=== PATIENT | male | born 1990 | race Caucasian/White ===

== ENCOUNTER 2024-04-16 10:38 | Inpatient (IN) | payer MEDICAID, OTHER ==
[~2024-04-16] VITALS: Ht 182.9 cm; Wt 52.4 kg
[2024-04-16] VITALS (44 sets, daily range): BP systolic 31–106; BP diastolic 15–62; TEMP 97–100.2; O2SAT 79–100
[2024-04-16] MEDS: IV NORMAL SALINE 1000 ML BAG IV ONE (11:00)
[2024-04-16] MEDS: ALBUTEROL SULFATE 2.5 MG/3 ML NEBU NEB ONE (11:00)
[2024-04-16] MEDS ORDERED: VANCOMYCIN IV 1,000 MG in IV DEXTROSE 5% 250 ML IV ONE (11:00)
[2024-04-16] MEDS ORDERED: NOREPINEPHRINE 8MG/NS 250ML 250 ML IV ONE (11:14)
[2024-04-16] MEDS: NOREPINEPHRINE 8MG/NS 250ML 250 ML IV PRN (11:14)
[2024-04-16] MEDS: ETOMIDATE 20 MG/10 ML VIAL IV ONE (11:20)
[2024-04-16] MEDS ORDERED: PROPOFOL 100 ML ONE (11:34)
[2024-04-16 11:52] LABS: ETHANOL 273 MG/DL (0-10)
[2024-04-16 11:52] LABS: ABG HCO3 3.4 mmol/L (21.0-28.0); ABG PCO2 20.6 mmHg (35.0-48.0); ABG PH 6.833 (7.350-7.450); ABG PO2 > 500.9 mmHg (83.0-108.0); ABG SITE LEFT FEMORAL; ABG TOTAL HEMOGLOBIN 15.4 G/dL (13.5-17.5); AaDO2 99.8 mmHg; COHb 0.3 % (0.5-1.5); MetHb 0.7 % (0.0-1.5); O2Hb 98.7 % (94.0-98.0); VT, ABG 500 mL
[2024-04-16 11:57] LABS: ALANINE AMINOTRANSFERASE 463 U/L (16-63); ALBUMIN 3.5 g/dL (3.4-5.0); ALKALINE PHOSPHATASE 169 U/L (50-136); ASPARTATE AMINOTRANSFERASE 423 U/L (15-37); BILIRUBIN,DIRECT 2.8 mg/dL (0.0-0.2); BILIRUBIN,TOTAL 3.3 mg/dL (0.2-1.0); CALCIUM 8.2 mg/dL (8.5-10.1); CHLORIDE 80 mmol/L (98-107); CREATININE 2.9 mg/dL (0.6-1.3); GLUCOSE 91 mg/dL (74-106); POTASSIUM 3.8 mmol/L (3.5-5.1); SODIUM SERUM 132 mmol/L (136-145); TOTAL PROTEIN, SERUM 5.8 g/dL (6.4-8.2); UREA NITROGEN, BLOOD 32 mg/dL (7-18)
[2024-04-16 11:59] LABS: BASOPHILS # (AUTO) 0.1 K/UL (0.0-0.2); BASOPHILS % (AUTO) 0.4 % (0.0-2.0); DIFFERENTIAL COMMENT 1; EOSINOPHILS % (AUTO) 0.2 % (0.0-7.0); HEMATOCRIT 47.1 % (36.7-47.1); HEMOGLOBIN 14.8 g/dL (12.5-16.3); LYMPHOCYTES # (AUTO) 4.1 K/uL (0.8-4.8); LYMPHOCYTES % (AUTO) 13.9 % (20.5-51.5); MEAN CORPUSCULAR HEMOGLOBIN 31.5 uug (23.8-33.4); MEAN CORPUSCULAR HGB CONC 32 g/dL (32.5-36.3); MEAN CORPUSCULAR VOLUME 99.9 fL (73.0-96.2); MONOCYTES # (AUTO) 4.2 K/uL (0.1-1.30); MONOCYTES % (AUTO) 14.2 % (0.0-11.0); NEUTROPHILS # (AUTO) 21.1 K/uL (1.8-8.9); NEUTROPHILS % (AUTO) 71.3 % (38.5-71.5); PLATELET COUNT (AUTO) 186 K/uL (152-348); RED BLOOD CELL COUNT(AUTO) 4.71 MIL/uL (4.06-5.63); RED CELL DISTRIBUTION WIDTH 13.7 % (12.1-16.2); WHITE BLOOD COUNT (AUTO) 29.6 K/uL (3.6-10.2)
[2024-04-16 12:00] LABS: NT-PRO BNP 510 pg/mL (0-125)
[2024-04-16 12:02] LABS: THYROID STIMULATING HORMONE 0.902 mIU/mL (0.358-3.740)
[2024-04-16 12:07] LABS: ACETAMINOPHEN < 10.0 ug/mL (10-30)
[2024-04-16 12:12] LABS: AMMONIA 218 umol/L (11-32)
[2024-04-16] MEDS: DEXTROSE 50% 50 ML DISP.SYRIN IV ONE (12:15)
[2024-04-16] MEDS: INSULIN REGULAR, HUMAN 1000 UNIT/10 ML VIAL IV ONE (12:15)
[2024-04-16] MEDS: CALCIUM CHLORIDE 1 GM/10 ML DISP.SYRIN IVP ONE (12:15)
[2024-04-16] MEDS: PIPERACILLIN SODIUM/TAZOBACTAM 3.375 G in IV DEXTROSE 5% 50 ML IV ONE (12:15)
[2024-04-16] MEDS: SODIUM BICARBONATE 8.4% 50 MEQ/50 ML DISP.SYRIN IV ONE (12:15)
[2024-04-16] MEDS ORDERED: IV LACTATED RINGERS SOLUTION 1,000 ML IV SCH (12:15)
[2024-04-16 12:17] LABS: LACTIC ACID 31.6 mmol/L (0.4-2.0)
[2024-04-16] MEDS: RIFAXIMIN 550 MG TABLET NG SCH (12:45)
[2024-04-16] MEDS: LACTULOSE 20 G/30 ML LIQUID UDC NG SCH (12:45)
[2024-04-16] MEDS ORDERED: PHENYLEPHRINE IV 100 MG in IV NORMAL SALINE 240 ML IV PRN (13:00)
[2024-04-16] MEDS: PROPOFOL 200 MG/20 ML BOTTLE IV ONE (13:03)
[2024-04-16] MEDS: IV NS 1000 ML 1,000 ML IV PRN (13:04)
[2024-04-16] MEDS: SODIUM BICARBONATE 8.4% 150 MEQ in IV D5W 1000ML 1,000 ML IV SCH ×2 (13:05→13:49)
[2024-04-16] MEDS: PROPOFOL 100 ML IV PRN ×2 (13:24→23:06)
[2024-04-16] MEDS ORDERED: NOREPINEPHRINE BITARTRATE 32 MG in IV NORMAL SALINE 218 ML IV PRN (13:30)
[2024-04-16] MEDS: PHENYLEPHRINE IV 100 MG in IV NORMAL SALINE 240 ML IV PRN (13:46)
[2024-04-16 13:47] LABS: *BILIRUBIN,URIN NEGATIVE (NEGATIVE); *BLOOD, URINE 2+ (NEGATIVE); *CLARITY,URINE CLEAR (CLEAR); *COLOR,URINE YELLOW (YELLOW); *KETONES,URINE 1+ (NEGATIVE); *PROTEIN,URINE 3+ (NEGATIVE); *UROBILINOGEN,URINE 0.2 E.U./dl (NORMAL); LEUKOCYTE ESTERASE ,URINE NEGATIVE (NEGATIVE); NITRITE, URINE NEGATIVE (NEGATIVE); PH,URINE 5.5 (5.0-8.0); UGLUCOSE NEGATIVE (NEGATIVE)
[2024-04-16 13:52] LABS: BACTERIA,URINE FEW /HPF (NONE SEEN); RBC,URINE 20-50 /HPF (0-3); URINE AMORPHOUS URATE FEW /HPF; WBC,URINE 0-3 /HPF (0-3)
[2024-04-16] MEDS: FENTANYL CITRATE/PF 1,000 MCG in IV NORMAL SALINE 80 ML IV PRN (13:55)
[2024-04-16] MEDS: VANCOMYCIN IV 1,000 MG in IV DEXTROSE 5% 250 ML IV ONE (14:01)
[2024-04-16] MEDS: MEROPENEM 1 G in IV NORMAL SALINE 100 ML IV SCH (14:02)
[2024-04-16 14:18] LABS: *AMPHETAMINE, URINE NEGATIVE (NEGATIVE); *BARBITURATE, URINE NEGATIVE (NEGATIVE); *BENZODIAZEPINE, URINE NEGATIVE (NEGATIVE); *CANNABINOID, URINE NEGATIVE (NEGATIVE); *COCCAINE, URINE NEGATIVE (NEGATIVE); *OPIATE, URINE NEGATIVE (NEGATIVE); *PHENCYCLIDINE SCREEN,URINE NEGATIVE (NEGATIVE); FENTANYL, URINE NEGATIVE (NEGATIVE)
[2024-04-16] MEDS: IV LACTATED RINGERS SOLUTION 1,000 ML IV PRN (17:42)
[2024-04-16] MEDS: VASOPRESSIN 40 UNIT in IV NORMAL SALINE 40 ML IV PRN (18:05)
[2024-04-16 18:19] LABS: BASOPHILS # (AUTO) 0.1 K/UL (0.0-0.2); BASOPHILS % (AUTO) 0.6 % (0.0-2.0); EOSINOPHILS % (AUTO) 0.1 % (0.0-7.0); HEMATOCRIT 51.2 % (36.7-47.1); HEMOGLOBIN 17.1 g/dL (12.5-16.3); LYMPHOCYTES # (AUTO) 3.6 K/uL (0.8-4.8); LYMPHOCYTES % (AUTO) 19.9 % (20.5-51.5); MEAN CORPUSCULAR HEMOGLOBIN 32.2 uug (23.8-33.4); MEAN CORPUSCULAR HGB CONC 33 g/dL (32.5-36.3); MEAN CORPUSCULAR VOLUME 96.2 fL (73.0-96.2); MONOCYTES # (AUTO) 0.4 K/uL (0.1-1.30); MONOCYTES % (AUTO) 2.5 % (0.0-11.0); NEUTROPHILS % (AUTO) 76.9 % (38.5-71.5); PLATELET COUNT (AUTO) 121 K/uL (152-348); RED BLOOD CELL COUNT(AUTO) 5.33 MIL/uL (4.06-5.63); RED CELL DISTRIBUTION WIDTH 13.6 % (12.1-16.2); WHITE BLOOD COUNT (AUTO) 18.2 K/uL (3.6-10.2)
[2024-04-16] MEDS: CHARCOAL ACTIVATED (WITHOUT SORBITOL) 50 G/240 ML BOTTLE NG ONE (18:26)
[2024-04-16 18:55] LABS: DIFFERENTIAL COMMENT 1
[2024-04-16 19:06] LABS: ALBUMIN 1.9 g/dL (3.4-5.0); BILIRUBIN,DIRECT 1.8 mg/dL (0.0-0.2); BILIRUBIN,TOTAL 3.4 mg/dL (0.2-1.0); CREATININE 2.7 mg/dL (0.6-1.3); POTASSIUM 4.6 mmol/L (3.5-5.1)
[2024-04-16 19:12] LABS: CALCIUM 5.8 mg/dL (8.5-10.1)
[2024-04-16] MEDS ORDERED: IV LACTATED RINGERS SOLUTION 500 ML IV SCH (20:00)
[2024-04-16] MEDS ORDERED: PROPOFOL 100 ML IV PRN (23:00)
[2024-04-17] VITALS (81 sets, daily range): BP systolic 31–149; BP diastolic 12–97; TEMP 98.3–101; O2SAT 83–100
[2024-04-17] MEDS: NOREPINEPHRINE BITARTRATE 32 MG in IV NORMAL SALINE 218 ML IV PRN (00:09)
[2024-04-17] MEDS: ACETAMINOPHEN 650 MG SUPP.RECT RC PRN (04:19)
[2024-04-17] MEDS ORDERED: LACTULOSE 20 G/30 ML LIQUID UDC ONE (06:09)
[2024-04-17 06:35] LABS: BASOPHILS % (AUTO) 0.5 % (0.0-2.0); DIFFERENTIAL COMMENT 0; EOSINOPHILS % (AUTO) 0.1 % (0.0-7.0); HEMATOCRIT 41.2 % (36.7-47.1); LYMPHOCYTES % (AUTO) 25.9 % (20.5-51.5); MEAN CORPUSCULAR HEMOGLOBIN 33.9 uug (23.8-33.4); MEAN CORPUSCULAR HGB CONC 37 g/dL (32.5-36.3); MEAN CORPUSCULAR VOLUME 92.7 fL (73.0-96.2); MONOCYTES # (AUTO) 0.5 K/uL (0.1-1.30); MONOCYTES % (AUTO) 11.3 % (0.0-11.0); NEUTROPHILS # (AUTO) 2.5 K/uL (1.8-8.9); NEUTROPHILS % (AUTO) 62.2 % (38.5-71.5); PLATELET COUNT (AUTO) 57 K/uL (152-348); RED BLOOD CELL COUNT(AUTO) 4.44 MIL/uL (4.06-5.63); RED CELL DISTRIBUTION WIDTH 13.3 % (12.1-16.2)
[2024-04-17 07:45] LABS: CALCIUM 6.1 mg/dL (8.5-10.1); CREATININE 3.9 mg/dL (0.6-1.3); FIBRINOGEN ACTIVITY 184 mg/dL (210-360); MAGNESIUM 1.8 mg/dL (1.8-2.4); PHOSPHOROUS 1.7 mg/dL (2.5-4.9); POTASSIUM 3.8 mmol/L (3.5-5.1)
[2024-04-17 07:57] LABS: VANCOMYCIN,RANDOM 14.4 ug/mL (20.0-30.0)
[2024-04-17] MEDS: PANTOPRAZOLE SODIUM 40 MG VIAL IV SCH ×2 (08:02→21:04)
[2024-04-17 08:26] LABS: ABG BASE EXCESS -3.2 mmol/L (-2.0-3.0); ABG HCO3 22.4 mmol/L (21.0-28.0); ABG PCO2 42.4 mmHg (35.0-48.0); ABG PH 7.341 (7.350-7.450); ABG PO2 55.5 mmHg (83.0-108.0); ABG SITE LEFT BRACHIAL; ABG TOTAL HEMOGLOBIN 14.1 G/dL (13.5-17.5); AaDO2 87.2 mmHg; COHb 0.3 % (0.5-1.5); MetHb 0.3 % (0.0-1.5); O2Hb 90.1 % (94.0-98.0); VT, ABG 500 mL
[2024-04-17 09:02] LABS: BAND % (MANUAL) 4 % (0-10); LYMPHOCYTES % (MANUAL) 23 % (20-40); MONOCYTES % (MANUAL) 13 % (2-10); NEUTROPHILS % (MANUAL) 57 % (42-75)
[2024-04-17 09:03] LABS: METAMYELOCYTES % 3 % (0-1); PLATELET ESTIMATE DECREASED
[2024-04-17] MEDS: VANCOMYCIN IV 500 MG in IV DEXTROSE 5% 100 ML IV ONE (09:29)
[2024-04-17] MEDS ORDERED: LACTULOSE 20 G/30 ML LIQUID UDC PR SCH (09:45)
[2024-04-17] MEDS: LEVALBUTEROL HCL NEB 0.63 MG/3 ML NEBU NEB SCH (09:53)
[2024-04-17] MEDS: IPRATROPIUM BROMIDE 0.5 MG/2.5 ML NEBU NEB SCH (09:53)
[2024-04-17] MEDS: HYDROCORTISONE SOD SUCCINATE 100 MG/2 ML VIAL IV SCH (10:00)
[2024-04-17] MEDS: SODIUM PHOSPHATE MM 15 MMOL in IV NORMAL SALINE 250 ML IV ONE (10:55)
[2024-04-17] MEDS: IRR STERIL WATER FOR IRR 700 ML, LACTULOSE 200 G PR SCH (11:00)
[2024-04-17 11:23] LABS: ABG BASE EXCESS 0.7 mmol/L (-2.0-3.0); ABG HCO3 24.9 mmol/L (21.0-28.0); ABG PCO2 38.8 mmHg (35.0-48.0); ABG PH 7.426 (7.350-7.450); ABG SITE LEFT BRACHIAL; ABG TOTAL HEMOGLOBIN 14.8 G/dL (13.5-17.5); AaDO2 88.9 mmHg; COHb 0.3 % (0.5-1.5); MetHb 0.2 % (0.0-1.5); O2Hb 90.9 % (94.0-98.0); VT, ABG 450 mL
[2024-04-17] MEDS: FUROSEMIDE 40 MG/4 ML VIAL IV ONE (12:06)
[2024-04-18] VITALS (99 sets, daily range): BP systolic 39–137; BP diastolic 15–89; TEMP 97.8–99.3; O2SAT 81–100
[2024-04-18 06:53] LABS: BASOPHILS % (AUTO) 0.2 % (0.0-2.0); DIFFERENTIAL COMMENT 0; EOSINOPHILS % (AUTO) 0.1 % (0.0-7.0); HEMATOCRIT 25.6 % (36.7-47.1); HEMOGLOBIN 9.4 g/dL (12.5-16.3); LYMPHOCYTES % (AUTO) 7.4 % (20.5-51.5); MEAN CORPUSCULAR HEMOGLOBIN 32.9 uug (23.8-33.4); MEAN CORPUSCULAR HGB CONC 37 g/dL (32.5-36.3); MEAN CORPUSCULAR VOLUME 90.1 fL (73.0-96.2); MONOCYTES # (AUTO) 0.3 K/uL (0.1-1.30); MONOCYTES % (AUTO) 2.7 % (0.0-11.0); NEUTROPHILS # (AUTO) 11.7 K/uL (1.8-8.9); NEUTROPHILS % (AUTO) 89.6 % (38.5-71.5); RED BLOOD CELL COUNT(AUTO) 2.84 MIL/uL (4.06-5.63); RED CELL DISTRIBUTION WIDTH 13.1 % (12.1-16.2); WHITE BLOOD COUNT (AUTO) 13.1 K/uL (3.6-10.2)
[2024-04-18 06:57] LABS: PLATELET COUNT (AUTO) 24 K/uL (152-348)
[2024-04-18 07:48] LABS: ALANINE AMINOTRANSFERASE 490 U/L (16-63); ALBUMIN 1.6 g/dL (3.4-5.0); ALKALINE PHOSPHATASE 91 U/L (50-136); ASPARTATE AMINOTRANSFERASE 1400 U/L (15-37); BILIRUBIN,TOTAL 4.7 mg/dL (0.2-1.0); CARBON DIOXIDE 28 mmol/L (21-32); CHLORIDE 92 mmol/L (98-107); CREATININE 4.6 mg/dL (0.6-1.3); GLUCOSE 279 mg/dL (74-106); SODIUM SERUM 133 mmol/L (136-145); TOTAL PROTEIN, SERUM 3.2 g/dL (6.4-8.2); UREA NITROGEN, BLOOD 33 mg/dL (7-18)
[2024-04-18] MEDS: MIDAZOLAM HCL 50 MG in IV NORMAL SALINE 40 ML IV PRN (07:52)
[2024-04-18 07:59] LABS: CALCIUM 5.3 mg/dL (8.5-10.1); LACTIC ACID 10.5 mmol/L (0.4-2.0); LIPASE > 375 U/L (16-77)
[2024-04-18 08:07] LABS: VANCOMYCIN,RANDOM 13.9 ug/mL (20.0-30.0)
[2024-04-18] MEDS: VANCOMYCIN IV 500 MG in IV DEXTROSE 5% 100 ML IV ONE ×2 (09:00→15:00)
[2024-04-18] MEDS: PHYTONADIONE 10 MG/1 ML AMPUL IM ONE (10:31)
[2024-04-18 11:31] LABS: BASOPHILS % (AUTO) 0.2 % (0.0-2.0); EOSINOPHILS % (AUTO) 0.2 % (0.0-7.0); LYMPHOCYTES # (AUTO) 0.9 K/uL (0.8-4.8); LYMPHOCYTES % (AUTO) 5.9 % (20.5-51.5); MEAN CORPUSCULAR HGB CONC 37 g/dL (32.5-36.3); MEAN CORPUSCULAR VOLUME 89.9 fL (73.0-96.2); MONOCYTES # (AUTO) 0.4 K/uL (0.1-1.30); MONOCYTES % (AUTO) 2.5 % (0.0-11.0); NEUTROPHILS # (AUTO) 13.3 K/uL (1.8-8.9); NEUTROPHILS % (AUTO) 91.2 % (38.5-71.5); RED CELL DISTRIBUTION WIDTH 12.9 % (12.1-16.2); WHITE BLOOD COUNT (AUTO) 14.5 K/uL (3.6-10.2)
[2024-04-18 11:34] LABS: DIFFERENTIAL COMMENT 1; HEMATOCRIT 20.2 % (36.7-47.1); HEMOGLOBIN 7.4 g/dL (12.5-16.3); PLATELET COUNT (AUTO) 29 K/uL (152-348); RED BLOOD CELL COUNT(AUTO) 2.25 MIL/uL (4.06-5.63)
[2024-04-18] MEDS: ALBUMIN HUMAN 25% 100 ML IV PRN (11:48)
[2024-04-18] MEDS ORDERED: PHYTONADIONE 10 MG/1 ML AMPUL IM ONE (15:15)
[2024-04-18] MEDS: ACETAMINOPHEN 325 MG TABLET PO ONE (15:15)
[2024-04-18] MEDS: diphenhydrAMINE 50 MG/1 ML VIAL IV ONE (15:15)
[2024-04-18 16:03] LABS: THYROID STIMULATING HORMONE 0.49 mIU/mL (0.358-3.740)
[2024-04-18 16:10] LABS: *RHEUMATOID FACTOR SCREEN NEGATIVE (NEGATIVE); HIV-1 p24 ANTIGEN NON REACTIVE (NONREACTIVE); HIV-1/2 ANTIBODY NON REACTIVE (NONREACTIVE)
[2024-04-18 17:00] LABS: C-REACTIVE PROTEIN 14.72 mg/dL (0.00-0.30)
[2024-04-18] MEDS ORDERED: ACETAMINOPHEN 325 MG TABLET-SA PATIENTS-PAIN ONLY PO PRN (18:00)
[2024-04-18] MEDS: ACETAMINOPHEN 325 MG TABLET NG PRN (18:09)
[2024-04-18] MEDS ORDERED: ACETAMINOPHEN 325 MG TABLET GT PRN (18:15)
[2024-04-18 18:36] LABS: BAND % (MANUAL) 8 % (0-10); LYMPHOCYTES % (MANUAL) 6 % (20-40); MONOCYTES % (MANUAL) 1 % (2-10); NEUTROPHILS % (MANUAL) 85 % (42-75)
[2024-04-18 18:37] LABS: ANISOCYTOSIS 1+; PLATELET ESTIMATE MARKED DECREASED
[2024-04-18 18:38] LABS: HYPOCHROMASIA 1+; TEAR DROP CELLS OCC
[2024-04-18 20:15] LABS: BASOPHILS % (AUTO) 0.2 % (0.0-2.0); EOSINOPHILS # (AUTO) 0.1 K/uL (0.0-0.7); EOSINOPHILS % (AUTO) 0.6 % (0.0-7.0); HEMATOCRIT 24.2 % (36.7-47.1); HEMOGLOBIN 8.6 g/dL (12.5-16.3); LYMPHOCYTES # (AUTO) 0.6 K/uL (0.8-4.8); MEAN CORPUSCULAR HEMOGLOBIN 31.8 uug (23.8-33.4); MEAN CORPUSCULAR HGB CONC 36 g/dL (32.5-36.3); MEAN CORPUSCULAR VOLUME 89.2 fL (73.0-96.2); MONOCYTES # (AUTO) 0.5 K/uL (0.1-1.30); MONOCYTES % (AUTO) 3.4 % (0.0-11.0); NEUTROPHILS # (AUTO) 14.3 K/uL (1.8-8.9); NEUTROPHILS % (AUTO) 91.8 % (38.5-71.5); PLATELET COUNT (AUTO) 60 K/uL (152-348); RED BLOOD CELL COUNT(AUTO) 2.71 MIL/uL (4.06-5.63); RED CELL DISTRIBUTION WIDTH 13.8 % (12.1-16.2); WHITE BLOOD COUNT (AUTO) 15.6 K/uL (3.6-10.2)
[2024-04-19] VITALS (96 sets, daily range): BP systolic 90–151; BP diastolic 53–82; TEMP 97.8–99.6; O2SAT 89–100
[2024-04-19 01:03] LABS: ABG BASE EXCESS 5.4 mmol/L (-2.0-3.0); ABG HCO3 28.2 mmol/L (21.0-28.0); ABG PCO2 33.9 mmHg (35.0-48.0); ABG PH 7.538 (7.350-7.450); ABG PO2 114.7 mmHg (83.0-108.0); ABG SITE ALINE; ABG TOTAL HEMOGLOBIN 8.4 G/dL (13.5-17.5); AaDO2 98.6 mmHg; COHb 0.3 % (0.5-1.5); MetHb 0.4 % (0.0-1.5); O2Hb 97.5 % (94.0-98.0); VT, ABG 450 mL
[2024-04-19 01:03] LABS: ABG BASE EXCESS 2.4 mmol/L (-2.0-3.0); ABG HCO3 26.2 mmol/L (21.0-28.0); ABG PCO2 37.3 mmHg (35.0-48.0); ABG PH 7.464 (7.350-7.450); ABG PO2 68.5 mmHg (83.0-108.0); ABG SITE LEFT RADIAL; ABG TOTAL HEMOGLOBIN 9.8 G/dL (13.5-17.5); AaDO2 94.7 mmHg; COHb 0.3 % (0.5-1.5); MetHb 0.5 % (0.0-1.5); O2Hb 93.2 % (94.0-98.0); VT, ABG 450 mL
[2024-04-19 05:57] LABS: EOSINOPHILS % (AUTO) 0.3 % (0.0-7.0); HEMATOCRIT 22.6 % (36.7-47.1); HEMOGLOBIN 7.9 g/dL (12.5-16.3); LYMPHOCYTES # (AUTO) 0.4 K/uL (0.8-4.8); LYMPHOCYTES % (AUTO) 2.9 % (20.5-51.5); MEAN CORPUSCULAR HEMOGLOBIN 31.2 uug (23.8-33.4); MEAN CORPUSCULAR HGB CONC 35 g/dL (32.5-36.3); MEAN CORPUSCULAR VOLUME 88.9 fL (73.0-96.2); MONOCYTES # (AUTO) 0.8 K/uL (0.1-1.30); MONOCYTES % (AUTO) 5.8 % (0.0-11.0); RED BLOOD CELL COUNT(AUTO) 2.54 MIL/uL (4.06-5.63); RED CELL DISTRIBUTION WIDTH 13.9 % (12.1-16.2); WHITE BLOOD COUNT (AUTO) 13.2 K/uL (3.6-10.2)
[2024-04-19 05:59] LABS: ABG BASE EXCESS 5.2 mmol/L (-2.0-3.0); ABG HCO3 29.8 mmol/L (21.0-28.0); ABG PCO2 44.2 mmHg (35.0-48.0); ABG PH 7.446 (7.350-7.450); ABG PO2 91.4 mmHg (83.0-108.0); ABG SITE LEFT RADIAL; ABG TOTAL HEMOGLOBIN 8.5 G/dL (13.5-17.5); AaDO2 97.2 mmHg; COHb 0.3 % (0.5-1.5); MetHb 0.6 % (0.0-1.5); VT, ABG 450 mL
[2024-04-19 06:05] LABS: DIFFERENTIAL COMMENT 1; PLATELET COUNT (AUTO) 48 K/uL (152-348)
[2024-04-19 06:44] LABS: BILIRUBIN,TOTAL 4.3 mg/dL (0.2-1.0); CREATININE 4.6 mg/dL (0.6-1.3); MAGNESIUM 1.5 mg/dL (1.8-2.4); PHOSPHOROUS 4.2 mg/dL (2.5-4.9); POTASSIUM 4.2 mmol/L (3.5-5.1); TOTAL PROTEIN, SERUM 3.9 g/dL (6.4-8.2)
[2024-04-19 06:49] LABS: CALCIUM 5.6 mg/dL (8.5-10.1)
[2024-04-19 09:22] LABS: BAND % (MANUAL) 20 % (0-10); LYMPHOCYTES % (MANUAL) 4 % (20-40); NEUTROPHILS % (MANUAL) 66 % (42-75)
[2024-04-19 09:23] LABS: ANISOCYTOSIS 1+; METAMYELOCYTES % 3 % (0-1); MONOCYTES % (MANUAL) 7 % (2-10); PLATELET ESTIMATE MARKED DECREASED
[2024-04-19] MEDS: MAGNESIUM SULFATE/D5W 100 ML IV SCH (09:55)
[2024-04-19] MEDS: MEROPENEM 1 G in IV NORMAL SALINE 100 ML IV SCH (14:44)
[2024-04-19] MEDS ORDERED: ALBUMIN HUMAN 25% 100 ML IV PRN (20:00)
[2024-04-19] MEDS: VANCOMYCIN IV 500 MG in IV DEXTROSE 5% 100 ML IV ONE (23:15)
[2024-04-20] VITALS (63 sets, daily range): BP systolic 95–158; BP diastolic 58–85; TEMP 97.7–98.6; O2SAT 85–98
[2024-04-20 05:08] LABS: BASOPHILS % (AUTO) 0.1 % (0.0-2.0); DIFFERENTIAL COMMENT 0; EOSINOPHILS % (AUTO) 0.1 % (0.0-7.0); LYMPHOCYTES # (AUTO) 0.3 K/uL (0.8-4.8); LYMPHOCYTES % (AUTO) 2.2 % (20.5-51.5); MEAN CORPUSCULAR HEMOGLOBIN 31.2 uug (23.8-33.4); MEAN CORPUSCULAR HGB CONC 35 g/dL (32.5-36.3); MEAN CORPUSCULAR VOLUME 89.1 fL (73.0-96.2); MONOCYTES # (AUTO) 1.1 K/uL (0.1-1.30); MONOCYTES % (AUTO) 8.3 % (0.0-11.0); NEUTROPHILS # (AUTO) 11.6 K/uL (1.8-8.9); NEUTROPHILS % (AUTO) 89.3 % (38.5-71.5); RED CELL DISTRIBUTION WIDTH 14.2 % (12.1-16.2)
[2024-04-20 05:12] LABS: CALCIUM 6.6 mg/dL (8.5-10.1); CREATININE 4.1 mg/dL (0.6-1.3); PHOSPHOROUS 4.1 mg/dL (2.5-4.9); POTASSIUM 3.8 mmol/L (3.5-5.1)
[2024-04-20 05:18] LABS: RED BLOOD CELL COUNT(AUTO) 2.23 MIL/uL (4.06-5.63)
[2024-04-20 05:19] LABS: HEMATOCRIT 19.9 % (36.7-47.1)
[2024-04-20 05:20] LABS: PLATELET COUNT (AUTO) 35 K/uL (152-348)
[2024-04-20 06:20] LABS: ANISOCYTOSIS 1+; BAND % (MANUAL) 4 % (0-10); LYMPHOCYTES % (MANUAL) 2 % (20-40); MONOCYTES % (MANUAL) 9 % (2-10); NEUTROPHILS % (MANUAL) 85 % (42-75); PLATELET ESTIMATE DECREASED
[2024-04-20 06:23] LABS: ABG BASE EXCESS 1.1 mmol/L (-2.0-3.0); ABG HCO3 25.5 mmol/L (21.0-28.0); ABG PCO2 39.1 mmHg (35.0-48.0); ABG PH 7.432 (7.350-7.450); ABG PO2 62.3 mmHg (83.0-108.0); ABG SITE ALINE; ABG TOTAL HEMOGLOBIN 7.5 G/dL (13.5-17.5); AaDO2 92.6 mmHg; COHb 0.6 % (0.5-1.5); MetHb 0.9 % (0.0-1.5); O2Hb 90.1 % (94.0-98.0); VT, ABG 450 mL
[2024-04-20] MEDS ORDERED: VANCOMYCIN IV 500 MG in IV DEXTROSE 5% 100 ML IV PRN (10:00)
[2024-04-20] MEDS: MEROPENEM 500 MG in IV NORMAL SALINE 50 ML IV SCH (13:35)
[2024-04-20] MEDS ORDERED: NEPRO 1000 ML GT PRN (18:15)
[2024-04-20] MEDS: NEPRO 1000 ML GT PRN (18:55)
[2024-04-21] VITALS (70 sets, daily range): BP systolic 95–155; BP diastolic 56–81; TEMP 97.7–99.6; O2SAT 93–98
[2024-04-21 01:08] LABS: HEPATITIS B SURFACE AG Negative (Negative)
[2024-04-21 01:08] LABS: FOLATE (FOLIC ACID), SERUM 3.5 ng/mL (>3.0); HEPATITIS B CORE AB, IgM Negative (Negative); HEPATITIS B CORE AB, TOTAL Negative (Negative); HEPATITIS B SURFACE AB, QUAL Reactive (.); HEPATITIS C VIRUS ANTIBODY Non Reactive (Non Reactive)
[2024-04-21 03:12] LABS: *IMMUNOGLOBULIN G, SERUM 270 mg/dL (603-1613); IMMUNOGLOBULIN A, SERUM 70 mg/dL (90-386); IMMUNOGLOBULIN M, SERUM 37 mg/dL (20-172)
[2024-04-21 03:12] LABS: FREE KAPPA LT CHAINS SERUM 26.1 mg/L (3.3-19.4); FREE LAMBDA LT CHAIN SERUM 25.8 mg/L (5.7-26.3); KAPPA/LAMBDA RATIO SERUM 1.01 (0.26-1.65)
[2024-04-21 05:03] LABS: BASOPHILS % (AUTO) 0.1 % (0.0-2.0); DIFFERENTIAL COMMENT 0; EOSINOPHILS % (AUTO) 0.1 % (0.0-7.0); LYMPHOCYTES # (AUTO) 0.2 K/uL (0.8-4.8); LYMPHOCYTES % (AUTO) 0.8 % (20.5-51.5); MEAN CORPUSCULAR HEMOGLOBIN 31.1 uug (23.8-33.4); MEAN CORPUSCULAR HGB CONC 35 g/dL (32.5-36.3); MEAN CORPUSCULAR VOLUME 89.8 fL (73.0-96.2); MONOCYTES # (AUTO) 1.9 K/uL (0.1-1.30); MONOCYTES % (AUTO) 9.8 % (0.0-11.0); NEUTROPHILS % (AUTO) 89.2 % (38.5-71.5); PLATELET COUNT (AUTO) 51 K/uL (152-348); RED CELL DISTRIBUTION WIDTH 14.3 % (12.1-16.2)
[2024-04-21 05:07] LABS: RED BLOOD CELL COUNT(AUTO) 2.03 MIL/uL (4.06-5.63)
[2024-04-21 05:08] LABS: HEMOGLOBIN 6.3 g/dL (12.5-16.3)
[2024-04-21 05:09] LABS: HEMATOCRIT 18.2 % (36.7-47.1)
[2024-04-21 05:14] LABS: CALCIUM 7.5 mg/dL (8.5-10.1); CREATININE 3.8 mg/dL (0.6-1.3); MAGNESIUM 2.3 mg/dL (1.8-2.4); PHOSPHOROUS 3.9 mg/dL (2.5-4.9)
[2024-04-21 05:34] LABS: FIBRINOGEN ACTIVITY 450 mg/dL (210-360)
[2024-04-21 05:41] LABS: BAND % (MANUAL) 8 % (0-10); LYMPHOCYTES % (MANUAL) 2 % (20-40); MONOCYTES % (MANUAL) 11 % (2-10); NEUTROPHILS % (MANUAL) 76 % (42-75); PLATELET ESTIMATE DECREASED
[2024-04-21 05:42] LABS: ANISOCYTOSIS 1+
[2024-04-21 06:08] LABS: ABG BASE EXCESS 0.3 mmol/L (-2.0-3.0); ABG HCO3 24.3 mmol/L (21.0-28.0); ABG PCO2 36.3 mmHg (35.0-48.0); ABG PH 7.444 (7.350-7.450); ABG PO2 78.1 mmHg (83.0-108.0); ABG SITE ALINE; ABG TOTAL HEMOGLOBIN 7.3 G/dL (13.5-17.5); AaDO2 96.1 mmHg; COHb 0.6 % (0.5-1.5); MetHb 0.9 % (0.0-1.5); O2Hb 93.8 % (94.0-98.0); VT, ABG 450 mL
[2024-04-21] MEDS ORDERED: diphenhydrAMINE 25 MG CAP PO ONE (09:00)
[2024-04-21] MEDS: diphenhydrAMINE 50 MG/1 ML VIAL IV ONE ×2 (09:03→18:40)
[2024-04-21] MEDS: NEOMY/BACITRAC/POLYMI OINT 28.35 GM TUBE TOP SCH (12:55)
[2024-04-21 14:11] LABS: A/G RATIO 1.4 (0.7-1.7); ALBUMIN 2.1 g/dL (2.9-4.4); ALPHA-1-GLOBULIN 0.3 g/dL (0.0-0.4); ALPHA-2-GLOBULIN 0.5 g/dL (0.4-1.0); BETA GLOBULIN 0.4 g/dL (0.7-1.3); GAMMA GLOBULIN 0.3 g/dL (0.4-1.8); GLOBULIN, TOTAL 1.5 g/dL (2.2-3.9); M-SPIKE 0.1 g/dL (Not Observed); PROTEIN, TOTAL 3.6 g/dL (6.0-8.5)
[2024-04-21] MEDS: PRECEDEX 400 MCG/100 ML BOTTLE 100 ML IV PRN (15:54)
[2024-04-21 16:29] LABS: BASOPHILS % (AUTO) 0.2 % (0.0-2.0); EOSINOPHILS % (AUTO) 0.1 % (0.0-7.0); LYMPHOCYTES # (AUTO) 0.3 K/uL (0.8-4.8); LYMPHOCYTES % (AUTO) 1.5 % (20.5-51.5); MEAN CORPUSCULAR HEMOGLOBIN 30.9 uug (23.8-33.4); MEAN CORPUSCULAR HGB CONC 35 g/dL (32.5-36.3); MEAN CORPUSCULAR VOLUME 89.3 fL (73.0-96.2); MONOCYTES # (AUTO) 1.5 K/uL (0.1-1.30); MONOCYTES % (AUTO) 8.5 % (0.0-11.0); NEUTROPHILS % (AUTO) 89.7 % (38.5-71.5); PLATELET COUNT (AUTO) 74 K/uL (152-348); RED CELL DISTRIBUTION WIDTH 14.2 % (12.1-16.2); WHITE BLOOD COUNT (AUTO) 17.8 K/uL (3.6-10.2)
[2024-04-21 16:31] LABS: DIFFERENTIAL COMMENT 1; HEMATOCRIT 20.3 % (36.7-47.1); RED BLOOD CELL COUNT(AUTO) 2.27 MIL/uL (4.06-5.63)
[2024-04-21] MEDS: HYDROCORTISONE SOD SUCCINATE 100 MG/2 ML VIAL IV SCH (17:41)
[2024-04-21] MEDS: ACETAMINOPHEN 325 MG TABLET PO ONE (18:39)
[2024-04-21 20:07] LABS: *ANTI-SCLERODERMA-70 AB <0.2 AI (0.0-0.9); *RNP ANTIBODIES <0.2 AI (0.0-0.9); *SJOGREN'S ANTI-SS-A 0.4 AI (0.0-0.9); *SJOGREN'S ANTI-SS-B <0.2 AI (0.0-0.9); *SMITH ANTIBODIES <0.2 AI (0.0-0.9); ANTI-DNA(DS) AB, QN <1 IU/mL (0-9); ANTI-NUCLEAR AB DIRECT Negative (Negative)
[2024-04-22] VITALS (34 sets, daily range): BP systolic 113–155; BP diastolic 63–88; TEMP 97.6–98.2; O2SAT 86–99
[2024-04-22 05:20] LABS: HEMATOCRIT 24.8 % (36.7-47.1); HEMOGLOBIN 8.7 g/dL (12.5-16.3); LYMPHOCYTES # (AUTO) 0.4 K/uL (0.8-4.8); LYMPHOCYTES % (AUTO) 2.2 % (20.5-51.5); MEAN CORPUSCULAR HEMOGLOBIN 31.3 uug (23.8-33.4); MEAN CORPUSCULAR HGB CONC 35 g/dL (32.5-36.3); MEAN CORPUSCULAR VOLUME 89.2 fL (73.0-96.2); MONOCYTES % (AUTO) 5.8 % (0.0-11.0); NEUTROPHILS # (AUTO) 16.3 K/uL (1.8-8.9); PLATELET COUNT (AUTO) 94 K/uL (152-348); RED BLOOD CELL COUNT(AUTO) 2.78 MIL/uL (4.06-5.63); RED CELL DISTRIBUTION WIDTH 14.4 % (12.1-16.2); WHITE BLOOD COUNT (AUTO) 17.7 K/uL (3.6-10.2)
[2024-04-22 05:25] LABS: DIFFERENTIAL COMMENT 1
[2024-04-22 05:35] LABS: ALBUMIN 1.9 g/dL (3.4-5.0); BILIRUBIN,TOTAL 3.2 mg/dL (0.2-1.0); CALCIUM 7.8 mg/dL (8.5-10.1); CREATININE 5.5 mg/dL (0.6-1.3); MAGNESIUM 2.6 mg/dL (1.8-2.4); PHOSPHOROUS 4.3 mg/dL (2.5-4.9); POTASSIUM 4.2 mmol/L (3.5-5.1); TOTAL PROTEIN, SERUM 4.8 g/dL (6.4-8.2)
[2024-04-22 05:39] LABS: FIBRINOGEN ACTIVITY 450 mg/dL (210-360)
[2024-04-22] MEDS: ALBUTEROL SULFATE 1.25 MG/3 ML NEBU NEB SCH (07:06)
[2024-04-22 07:31] LABS: BAND % (MANUAL) 5 % (0-10); LYMPHOCYTES % (MANUAL) 3 % (20-40); MONOCYTES % (MANUAL) 6 % (2-10); NEUTROPHILS % (MANUAL) 81 % (42-75); PLATELET ESTIMATE DECREASED
[2024-04-22] MEDS: MORPHINE SULFATE 2 MG/1 ML DISP.SYRIN IV PRN (12:46)
[2024-04-22] MEDS ORDERED: NOREPINEPHRINE 8MG/NS 250ML 250 ML IV PRN (14:15)
[2024-04-22] MEDS: REMEDY ESSENTIAL ZINC PASTE 113 GM TOP PRN (18:21)
[2024-04-23] VITALS (38 sets, daily range): BP systolic 113–176; BP diastolic 69–89; TEMP 97.8–98.3; O2SAT 94–99
[2024-04-23] MEDS: VANCOMYCIN IV 1,000 MG in IV DEXTROSE 5% 250 ML IV ONE (00:48)
[2024-04-23 03:01] LABS: BASOPHILS # (AUTO) 0.1 K/UL (0.0-0.2); BASOPHILS % (AUTO) 0.5 % (0.0-2.0); HEMOGLOBIN 9.6 g/dL (12.5-16.3); LYMPHOCYTES # (AUTO) 0.6 K/uL (0.8-4.8); LYMPHOCYTES % (AUTO) 2.4 % (20.5-51.5); MEAN CORPUSCULAR HEMOGLOBIN 30.5 uug (23.8-33.4); MEAN CORPUSCULAR HGB CONC 34 g/dL (32.5-36.3); MEAN CORPUSCULAR VOLUME 88.8 fL (73.0-96.2); MONOCYTES # (AUTO) 0.8 K/uL (0.1-1.30); MONOCYTES % (AUTO) 3.3 % (0.0-11.0); NEUTROPHILS # (AUTO) 22.6 K/uL (1.8-8.9); NEUTROPHILS % (AUTO) 93.8 % (38.5-71.5); PLATELET COUNT (AUTO) 161 K/uL (152-348); RED BLOOD CELL COUNT(AUTO) 3.15 MIL/uL (4.06-5.63); RED CELL DISTRIBUTION WIDTH 14.6 % (12.1-16.2); WHITE BLOOD COUNT (AUTO) 24.1 K/uL (3.6-10.2)
[2024-04-23 03:03] LABS: DIFFERENTIAL COMMENT 1
[2024-04-23 03:13] LABS: ALBUMIN 1.8 g/dL (3.4-5.0); BILIRUBIN,TOTAL 2.3 mg/dL (0.2-1.0); CALCIUM 7.7 mg/dL (8.5-10.1); CREATININE 4.6 mg/dL (0.6-1.3); POTASSIUM 4.3 mmol/L (3.5-5.1); TOTAL PROTEIN, SERUM 4.9 g/dL (6.4-8.2)
[2024-04-23 03:27] LABS: FIBRINOGEN ACTIVITY 413 mg/dL (210-360)
[2024-04-23 07:28] LABS: ABG BASE EXCESS 2.3 mmol/L (-2.0-3.0); ABG HCO3 24.4 mmol/L (21.0-28.0); ABG PCO2 29.2 mmHg (35.0-48.0); ABG PO2 111.4 mmHg (83.0-108.0); ABG SITE ALINE; ABG TOTAL HEMOGLOBIN 10.1 G/dL (13.5-17.5); AaDO2 98.6 mmHg; COHb 0.3 % (0.5-1.5); MetHb 0.4 % (0.0-1.5); O2Hb 97.6 % (94.0-98.0)
[2024-04-23 07:28] LABS: ABG BASE EXCESS 0.3 mmol/L (-2.0-3.0); ABG HCO3 22.8 mmol/L (21.0-28.0); ABG PCO2 29.3 mmHg (35.0-48.0); ABG PH 7.508 (7.350-7.450); ABG PO2 105.7 mmHg (83.0-108.0); ABG SITE ALINE; ABG TOTAL HEMOGLOBIN 10.4 G/dL (13.5-17.5); AaDO2 98.3 mmHg; COHb 0.3 % (0.5-1.5); MetHb 0.6 % (0.0-1.5)
[2024-04-23] MEDS: ONDANSETRON 4 MG/2 ML VIAL IV PRN (09:29)
[2024-04-24] VITALS (33 sets, daily range): BP systolic 131–164; BP diastolic 64–91; TEMP 98.3–99.5; O2SAT 92–98
[2024-04-24 05:09] LABS: BASOPHILS % (AUTO) 0.2 % (0.0-2.0); DIFFERENTIAL COMMENT 1; EOSINOPHILS % (AUTO) 0.1 % (0.0-7.0); HEMATOCRIT 26.9 % (36.7-47.1); HEMOGLOBIN 9.2 g/dL (12.5-16.3); LYMPHOCYTES # (AUTO) 0.6 K/uL (0.8-4.8); LYMPHOCYTES % (AUTO) 2.8 % (20.5-51.5); MEAN CORPUSCULAR HEMOGLOBIN 30.9 uug (23.8-33.4); MEAN CORPUSCULAR HGB CONC 34 g/dL (32.5-36.3); MEAN CORPUSCULAR VOLUME 89.8 fL (73.0-96.2); MONOCYTES # (AUTO) 1.4 K/uL (0.1-1.30); MONOCYTES % (AUTO) 6.2 % (0.0-11.0); NEUTROPHILS # (AUTO) 20.3 K/uL (1.8-8.9); NEUTROPHILS % (AUTO) 90.7 % (38.5-71.5); PLATELET COUNT (AUTO) 205 K/uL (152-348); RED BLOOD CELL COUNT(AUTO) 2.99 MIL/uL (4.06-5.63); RED CELL DISTRIBUTION WIDTH 14.5 % (12.1-16.2); WHITE BLOOD COUNT (AUTO) 22.3 K/uL (3.6-10.2)
[2024-04-24] MEDS: HYDROCORTISONE SOD SUCCINATE 100 MG/2 ML VIAL IV SCH (20:55)
[2024-04-25] VITALS (35 sets, daily range): BP systolic 131–190; BP diastolic 61–94; TEMP 98.8–100; O2SAT 90–99
[2024-04-25 05:51] LABS: BASOPHILS % (AUTO) 0.1 % (0.0-2.0); EOSINOPHILS % (AUTO) 0.1 % (0.0-7.0); HEMATOCRIT 26.4 % (36.7-47.1); HEMOGLOBIN 8.8 g/dL (12.5-16.3); LYMPHOCYTES # (AUTO) 0.7 K/uL (0.8-4.8); LYMPHOCYTES % (AUTO) 3.9 % (20.5-51.5); MEAN CORPUSCULAR HEMOGLOBIN 30.2 uug (23.8-33.4); MEAN CORPUSCULAR HGB CONC 33 g/dL (32.5-36.3); MEAN CORPUSCULAR VOLUME 90.4 fL (73.0-96.2); MONOCYTES # (AUTO) 1.5 K/uL (0.1-1.30); MONOCYTES % (AUTO) 7.9 % (0.0-11.0); NEUTROPHILS # (AUTO) 16.3 K/uL (1.8-8.9); PLATELET COUNT (AUTO) 215 K/uL (152-348); RED BLOOD CELL COUNT(AUTO) 2.92 MIL/uL (4.06-5.63); RED CELL DISTRIBUTION WIDTH 14.4 % (12.1-16.2); WHITE BLOOD COUNT (AUTO) 18.5 K/uL (3.6-10.2)
[2024-04-25 06:06] LABS: DIFFERENTIAL COMMENT 1
[2024-04-25 06:20] LABS: AMMONIA 10 umol/L (11-32)
[2024-04-25 06:54] LABS: TRIGLYCERIDES 218 MG/DL (30-150)
[2024-04-25 06:57] LABS: ALANINE AMINOTRANSFERASE 110 U/L (16-63); ALBUMIN 1.9 g/dL (3.4-5.0); ALKALINE PHOSPHATASE 330 U/L (50-136); ASPARTATE AMINOTRANSFERASE 167 U/L (15-37); BILIRUBIN,TOTAL 2.1 mg/dL (0.2-1.0); CALCIUM 7.9 mg/dL (8.5-10.1); CARBON DIOXIDE 32 mmol/L (21-32); CHLORIDE 103 mmol/L (98-107); CREATINE KINASE, TOTAL 1171 U/L (39-308); CREATININE 4.6 mg/dL (0.6-1.3); GLUCOSE 99 mg/dL (74-106); MAGNESIUM 2.4 mg/dL (1.8-2.4); NT-PRO BNP 4732 pg/mL (0-125); PHOSPHOROUS 5.1 mg/dL (2.5-4.9); POTASSIUM 4.2 mmol/L (3.5-5.1); SODIUM SERUM 144 mmol/L (136-145); TOTAL PROTEIN, SERUM 4.8 g/dL (6.4-8.2); UREA NITROGEN, BLOOD 75 mg/dL (7-18)
[2024-04-25 08:07] LABS: THYROID STIMULATING HORMONE 2.499 mIU/mL (0.358-3.740)
[2024-04-25 09:18] LABS: BASOPHILS % (AUTO) 0.2 % (0.0-2.0); EOSINOPHILS % (AUTO) 0.2 % (0.0-7.0); HEMATOCRIT 27.9 % (36.7-47.1); HEMOGLOBIN 9.4 g/dL (12.5-16.3); LYMPHOCYTES # (AUTO) 0.7 K/uL (0.8-4.8); LYMPHOCYTES % (AUTO) 3.6 % (20.5-51.5); MEAN CORPUSCULAR HEMOGLOBIN 30.6 uug (23.8-33.4); MEAN CORPUSCULAR HGB CONC 34 g/dL (32.5-36.3); MEAN CORPUSCULAR VOLUME 91.1 fL (73.0-96.2); MONOCYTES # (AUTO) 1.3 K/uL (0.1-1.30); NEUTROPHILS # (AUTO) 16.2 K/uL (1.8-8.9); PLATELET COUNT (AUTO) 215 K/uL (152-348); RED BLOOD CELL COUNT(AUTO) 3.07 MIL/uL (4.06-5.63); RED CELL DISTRIBUTION WIDTH 13.9 % (12.1-16.2); WHITE BLOOD COUNT (AUTO) 18.2 K/uL (3.6-10.2)
[2024-04-25 09:21] LABS: DIFFERENTIAL COMMENT 1
[2024-04-25 15:56] LABS: FREE T4 (FREE THYROXINE) 0.53 ng/dL (0.76-1.46)
[2024-04-25] MEDS: METOPROLOL TARTRATE 5 MG/5 ML VIAL IVP PRN (23:39)
[2024-04-26] VITALS (35 sets, daily range): BP systolic 125–170; BP diastolic 77–90; TEMP 98.1–99.3; O2SAT 88–99
[2024-04-26 07:18] LABS: BASOPHILS # (AUTO) 0.1 K/UL (0.0-0.2); BASOPHILS % (AUTO) 0.4 % (0.0-2.0); HEMATOCRIT 29.4 % (36.7-47.1); HEMOGLOBIN 9.9 g/dL (12.5-16.3); LYMPHOCYTES # (AUTO) 0.6 K/uL (0.8-4.8); LYMPHOCYTES % (AUTO) 2.9 % (20.5-51.5); MEAN CORPUSCULAR HGB CONC 34 g/dL (32.5-36.3); MEAN CORPUSCULAR VOLUME 91.9 fL (73.0-96.2); MONOCYTES # (AUTO) 1.3 K/uL (0.1-1.30); MONOCYTES % (AUTO) 6.5 % (0.0-11.0); NEUTROPHILS # (AUTO) 18.3 K/uL (1.8-8.9); NEUTROPHILS % (AUTO) 90.2 % (38.5-71.5); PLATELET COUNT (AUTO) 235 K/uL (152-348); RED CELL DISTRIBUTION WIDTH 14.2 % (12.1-16.2); WHITE BLOOD COUNT (AUTO) 20.3 K/uL (3.6-10.2)
[2024-04-26 07:35] LABS: DIFFERENTIAL COMMENT 1
[2024-04-26 07:41] LABS: CALCIUM 8.1 mg/dL (8.5-10.1); CREATININE 6.6 mg/dL (0.6-1.3); MAGNESIUM 2.9 mg/dL (1.8-2.4); POTASSIUM 4.9 mmol/L (3.5-5.1); TOTAL PROTEIN, SERUM 5.1 g/dL (6.4-8.2)
[2024-04-26 07:45] LABS: FIBRINOGEN ACTIVITY 345 mg/dL (210-360)
[2024-04-26 07:50] LABS: PHOSPHOROUS 8.6 mg/dL (2.5-4.9)
[2024-04-26 08:03] LABS: *BILIRUBIN,URIN 3+ (NEGATIVE); *BLOOD, URINE 3+ (NEGATIVE); *CLARITY,URINE CLEAR (CLEAR); *COLOR,URINE YELLOW (YELLOW); *KETONES,URINE 2+ (NEGATIVE); *PROTEIN,URINE 3+ (NEGATIVE); LEUKOCYTE ESTERASE ,URINE NEGATIVE (NEGATIVE); NITRITE, URINE NEGATIVE (NEGATIVE); UGLUCOSE NEGATIVE (NEGATIVE)
[2024-04-26 09:00] LABS: BAND % (MANUAL) 3 % (0-10); LYMPHOCYTES % (MANUAL) 4 % (20-40); METAMYELOCYTES % 1 % (0-1); MONOCYTES % (MANUAL) 6 % (2-10); NEUTROPHILS % (MANUAL) 86 % (42-75); PLATELET ESTIMATE ADEQUATE
[2024-04-26] MEDS ORDERED: SEVELAMER CARBONATE 800 MG POWD.PACK PO SCH (18:00)
[2024-04-26] MEDS ORDERED: SEVELAMER CARBONATE 800 MG TABLET PO SCH (18:00)
[2024-04-26] MEDS: SEVELAMER CARBONATE 800 MG POWD.PACK NG SCH (18:14)
[2024-04-27] VITALS (50 sets, daily range): BP systolic 108–189; BP diastolic 38–95; TEMP 98–99.5; O2SAT 86–99
[2024-04-27 05:09] LABS: BASOPHILS # (AUTO) 0.1 K/UL (0.0-0.2); BASOPHILS % (AUTO) 0.5 % (0.0-2.0); DIFFERENTIAL COMMENT 0; EOSINOPHILS % (AUTO) 0.2 % (0.0-7.0); HEMATOCRIT 29.4 % (36.7-47.1); HEMOGLOBIN 9.9 g/dL (12.5-16.3); LYMPHOCYTES # (AUTO) 0.6 K/uL (0.8-4.8); LYMPHOCYTES % (AUTO) 2.6 % (20.5-51.5); MEAN CORPUSCULAR HEMOGLOBIN 30.8 uug (23.8-33.4); MEAN CORPUSCULAR HGB CONC 34 g/dL (32.5-36.3); MEAN CORPUSCULAR VOLUME 91.2 fL (73.0-96.2); MONOCYTES # (AUTO) 1.7 K/uL (0.1-1.30); MONOCYTES % (AUTO) 7.4 % (0.0-11.0); NEUTROPHILS # (AUTO) 21.1 K/uL (1.8-8.9); NEUTROPHILS % (AUTO) 89.3 % (38.5-71.5); PLATELET COUNT (AUTO) 275 K/uL (152-348); RED BLOOD CELL COUNT(AUTO) 3.22 MIL/uL (4.06-5.63); RED CELL DISTRIBUTION WIDTH 13.7 % (12.1-16.2); WHITE BLOOD COUNT (AUTO) 23.6 K/uL (3.6-10.2)
[2024-04-27 05:23] LABS: ALBUMIN 2.1 g/dL (3.4-5.0); CALCIUM 8.2 mg/dL (8.5-10.1); CREATININE 5.8 mg/dL (0.6-1.3); MAGNESIUM 2.5 mg/dL (1.8-2.4); PHOSPHOROUS 7.1 mg/dL (2.5-4.9); POTASSIUM 4.4 mmol/L (3.5-5.1); TOTAL PROTEIN, SERUM 5.7 g/dL (6.4-8.2)
[2024-04-27 06:00] LABS: BAND % (MANUAL) 2 % (0-10); LYMPHOCYTES % (MANUAL) 5 % (20-40); MONOCYTES % (MANUAL) 5 % (2-10); NEUTROPHILS % (MANUAL) 88 % (42-75); PLATELET ESTIMATE ADEQUATE
[2024-04-27 07:15] LABS: ABG BASE EXCESS 1.7 mmol/L (-2.0-3.0); ABG HCO3 24.6 mmol/L (21.0-28.0); ABG PCO2 32.8 mmHg (35.0-48.0); ABG PH 7.493 (7.350-7.450); ABG PO2 53.6 mmHg (83.0-108.0); ABG TOTAL HEMOGLOBIN 10.9 G/dL (13.5-17.5); AaDO2 90.7 mmHg; COHb 0.3 % (0.5-1.5); MetHb 0.3 % (0.0-1.5); O2Hb 86.2 % (94.0-98.0)
[2024-04-27] MEDS ORDERED: ETOMIDATE 20 MG/10 ML VIAL ONE (10:30)
[2024-04-27] MEDS: IV D5 1/2 NS 1000 ML 1,000 ML IV ONE (11:11)
[2024-04-27] MEDS: DEXAMETHASONE SOD PHOSPHATE 4 MG INJ IV SCH (11:12)
[2024-04-27 11:43] LABS: ABG BASE EXCESS -2.5 mmol/L (-2.0-3.0); ABG HCO3 22.2 mmol/L (21.0-28.0); ABG PCO2 37.8 mmHg (35.0-48.0); ABG PH 7.386 (7.350-7.450); ABG TOTAL HEMOGLOBIN 12.4 G/dL (13.5-17.5); AaDO2 99.5 mmHg; COHb 0.3 % (0.5-1.5); MetHb 0.2 % (0.0-1.5); VT, ABG 450 mL
[2024-04-27] MEDS ORDERED: NOREPINEPHRINE 8MG/NS 250ML 250 ML IV PRN (11:45)
[2024-04-27] MEDS ORDERED: DEXAMETHASONE SOD PHOSPHATE 4 MG INJ IV SCH ×2 (12:00→21:00)
[2024-04-27] MEDS: MIDAZOLAM HCL 50 MG in IV NORMAL SALINE 40 ML IV PRN (12:38)
[2024-04-27] MEDS: FENTANYL CITRATE/PF 1,000 MCG in IV NORMAL SALINE 80 ML IV PRN (12:41)
[2024-04-28] VITALS (29 sets, daily range): BP systolic 111–169; BP diastolic 67–103; TEMP 97.4–98; O2SAT 97–99
[2024-04-28 04:54] LABS: BASOPHILS # (AUTO) 0.2 K/UL (0.0-0.2); BASOPHILS % (AUTO) 0.9 % (0.0-2.0); EOSINOPHILS % (AUTO) 0.1 % (0.0-7.0); HEMATOCRIT 25.4 % (36.7-47.1); HEMOGLOBIN 8.4 g/dL (12.5-16.3); LYMPHOCYTES # (AUTO) 0.6 K/uL (0.8-4.8); LYMPHOCYTES % (AUTO) 2.8 % (20.5-51.5); MEAN CORPUSCULAR HEMOGLOBIN 30.3 uug (23.8-33.4); MEAN CORPUSCULAR HGB CONC 33 g/dL (32.5-36.3); MEAN CORPUSCULAR VOLUME 91.6 fL (73.0-96.2); MONOCYTES # (AUTO) 1.3 K/uL (0.1-1.30); MONOCYTES % (AUTO) 6.3 % (0.0-11.0); NEUTROPHILS # (AUTO) 18.5 K/uL (1.8-8.9); NEUTROPHILS % (AUTO) 89.9 % (38.5-71.5); PLATELET COUNT (AUTO) 261 K/uL (152-348); RED BLOOD CELL COUNT(AUTO) 2.77 MIL/uL (4.06-5.63); RED CELL DISTRIBUTION WIDTH 13.5 % (12.1-16.2); WHITE BLOOD COUNT (AUTO) 20.6 K/uL (3.6-10.2)
[2024-04-28 05:00] LABS: DIFFERENTIAL COMMENT 1
[2024-04-28 05:15] LABS: CALCIUM 7.8 mg/dL (8.5-10.1); MAGNESIUM 2.4 mg/dL (1.8-2.4); POTASSIUM 5.1 mmol/L (3.5-5.1)
[2024-04-28 05:30] LABS: CREATININE 7.8 mg/dL (0.6-1.3); PHOSPHOROUS 8.9 mg/dL (2.5-4.9)
[2024-04-28 06:08] LABS: ABG BASE EXCESS 2.1 mmol/L (-2.0-3.0); ABG PCO2 37.5 mmHg (35.0-48.0); ABG PH 7.458 (7.350-7.450); ABG PO2 141.8 mmHg (83.0-108.0); ABG SITE RIGHT RADIAL; ABG TOTAL HEMOGLOBIN 9.2 G/dL (13.5-17.5); AaDO2 98.9 mmHg; COHb 0.3 % (0.5-1.5); MetHb 0.3 % (0.0-1.5); O2Hb 97.8 % (94.0-98.0); VT, ABG 450 mL
[2024-04-28] MEDS: METOCLOPRAMIDE HCL 10 MG/2 ML VIAL IV SCH (12:13)
[2024-04-28] MEDS ORDERED: LIDOCAINE HCL 1% 20 ML VIAL IJ PRN (14:15)
[2024-04-29] VITALS (29 sets, daily range): BP systolic 96–167; BP diastolic 66–100; TEMP 97.8–100.4; O2SAT 97–100
[2024-04-29] MEDS ORDERED: HEPARIN SODIUM,PORCINE 5,000 UNITS/ML VIAL IV ONE ×2 (01:00)
[2024-04-29] MEDS ORDERED: HEPARIN/D5W DRIP 500 ML IV SCH (01:00)
[2024-04-29 05:00] LABS: BASOPHILS # (AUTO) 0.1 K/UL (0.0-0.2); DIFFERENTIAL COMMENT 0; HEMOGLOBIN 8.1 g/dL (12.5-16.3); LYMPHOCYTES # (AUTO) 0.5 K/uL (0.8-4.8); MONOCYTES # (AUTO) 1.2 K/uL (0.1-1.30)
[2024-04-29 05:24] LABS: BASOPHILS % (AUTO) 0.4 % (0.0-2.0); EOSINOPHILS % (AUTO) 0.1 % (0.0-7.0); HEMATOCRIT 23.6 % (36.7-47.1); LYMPHOCYTES % (AUTO) 2.6 % (20.5-51.5); MEAN CORPUSCULAR HEMOGLOBIN 31.3 uug (23.8-33.4); MEAN CORPUSCULAR HGB CONC 35 g/dL (32.5-36.3); MEAN CORPUSCULAR VOLUME 90.7 fL (73.0-96.2); MONOCYTES % (AUTO) 5.9 % (0.0-11.0); NEUTROPHILS # (AUTO) 18.7 K/uL (1.8-8.9); PLATELET COUNT (AUTO) 274 K/uL (152-348); RED CELL DISTRIBUTION WIDTH 13.8 % (12.1-16.2); WHITE BLOOD COUNT (AUTO) 20.6 K/uL (3.6-10.2)
[2024-04-29 05:27] LABS: CALCIUM 7.5 mg/dL (8.5-10.1); CREATININE 5.2 mg/dL (0.6-1.3); POTASSIUM 4.3 mmol/L (3.5-5.1)
[2024-04-29 06:24] LABS: FIBRINOGEN ACTIVITY 386 mg/dL (210-360)
[2024-04-29] MEDS: METOCLOPRAMIDE HCL 10 MG/2 ML VIAL IV SCH (06:45)
[2024-04-29] MEDS ORDERED: METOCLOPRAMIDE HCL 10 MG/2 ML VIAL IV SCH (12:00)
[2024-04-30] VITALS (25 sets, daily range): BP systolic 105–165; BP diastolic 66–96; TEMP 98.2–99.5; O2SAT 94–100
[2024-04-30 05:00] LABS: BASOPHILS # (AUTO) 0.2 K/UL (0.0-0.2); BASOPHILS % (AUTO) 0.9 % (0.0-2.0); EOSINOPHILS % (AUTO) 0.2 % (0.0-7.0); HEMATOCRIT 23.7 % (36.7-47.1); HEMOGLOBIN 7.9 g/dL (12.5-16.3); LYMPHOCYTES # (AUTO) 0.7 K/uL (0.8-4.8); LYMPHOCYTES % (AUTO) 3.6 % (20.5-51.5); MEAN CORPUSCULAR HEMOGLOBIN 30.5 uug (23.8-33.4); MEAN CORPUSCULAR HGB CONC 33 g/dL (32.5-36.3); MEAN CORPUSCULAR VOLUME 91.8 fL (73.0-96.2); MONOCYTES # (AUTO) 1.4 K/uL (0.1-1.30); MONOCYTES % (AUTO) 7.1 % (0.0-11.0); NEUTROPHILS # (AUTO) 17.5 K/uL (1.8-8.9); NEUTROPHILS % (AUTO) 88.2 % (38.5-71.5); PLATELET COUNT (AUTO) 303 K/uL (152-348); RED BLOOD CELL COUNT(AUTO) 2.58 MIL/uL (4.06-5.63); RED CELL DISTRIBUTION WIDTH 13.6 % (12.1-16.2); WHITE BLOOD COUNT (AUTO) 19.8 K/uL (3.6-10.2)
[2024-04-30 05:22] LABS: DIFFERENTIAL COMMENT 1
[2024-04-30 05:26] LABS: CALCIUM 7.7 mg/dL (8.5-10.1); CREATININE 4.2 mg/dL (0.6-1.3); POTASSIUM 4.3 mmol/L (3.5-5.1)
[2024-05-01] VITALS (25 sets, daily range): BP systolic 114–141; BP diastolic 72–102; TEMP 98–99.8; O2SAT 97–100
[2024-05-01 05:09] LABS: HEMATOCRIT 23.1 % (36.7-47.1); HEMOGLOBIN 7.6 g/dL (12.5-16.3); MEAN CORPUSCULAR HEMOGLOBIN 30.1 uug (23.8-33.4); MEAN CORPUSCULAR HGB CONC 33 g/dL (32.5-36.3); MEAN CORPUSCULAR VOLUME 91.3 fL (73.0-96.2); NEUTROPHILS % (AUTO) 87.6 % (38.5-71.5); PLATELET COUNT (AUTO) 343 K/uL (152-348); RED BLOOD CELL COUNT(AUTO) 2.53 MIL/uL (4.06-5.63); RED CELL DISTRIBUTION WIDTH 13.3 % (12.1-16.2); WHITE BLOOD COUNT (AUTO) 18.5 K/uL (3.6-10.2)
[2024-05-01 05:10] LABS: BASOPHILS # (AUTO) 0.2 K/UL (0.0-0.2); EOSINOPHILS # (AUTO) 0.1 K/uL (0.0-0.7); EOSINOPHILS % (AUTO) 0.3 % (0.0-7.0); LYMPHOCYTES # (AUTO) 0.6 K/uL (0.8-4.8); LYMPHOCYTES % (AUTO) 3.1 % (20.5-51.5); MONOCYTES # (AUTO) 1.5 K/uL (0.1-1.30); NEUTROPHILS # (AUTO) 16.2 K/uL (1.8-8.9)
[2024-05-01 05:15] LABS: DIFFERENTIAL COMMENT 1
[2024-05-01 05:19] LABS: CALCIUM 7.8 mg/dL (8.5-10.1); CREATININE 5.9 mg/dL (0.6-1.3); POTASSIUM 4.7 mmol/L (3.5-5.1)
[2024-05-01 05:46] LABS: FIBRINOGEN ACTIVITY 450 mg/dL (210-360)
[2024-05-01] MEDS: METOCLOPRAMIDE HCL 5 MG TABLET NG SCH (18:45)
[2024-05-02] VITALS (25 sets, daily range): BP systolic 104–157; BP diastolic 61–99; TEMP 98–99.6; O2SAT 94–98
[2024-05-02 05:23] LABS: BASOPHILS # (AUTO) 0.2 K/UL (0.0-0.2); BASOPHILS % (AUTO) 1.2 % (0.0-2.0); EOSINOPHILS % (AUTO) 0.3 % (0.0-7.0); HEMATOCRIT 23.8 % (36.7-47.1); HEMOGLOBIN 8.2 g/dL (12.5-16.3); LYMPHOCYTES # (AUTO) 0.7 K/uL (0.8-4.8); LYMPHOCYTES % (AUTO) 4.2 % (20.5-51.5); MEAN CORPUSCULAR HEMOGLOBIN 31.5 uug (23.8-33.4); MEAN CORPUSCULAR HGB CONC 35 g/dL (32.5-36.3); MEAN CORPUSCULAR VOLUME 91.2 fL (73.0-96.2); MONOCYTES # (AUTO) 1.7 K/uL (0.1-1.30); MONOCYTES % (AUTO) 9.8 % (0.0-11.0); NEUTROPHILS # (AUTO) 14.6 K/uL (1.8-8.9); NEUTROPHILS % (AUTO) 84.5 % (38.5-71.5); PLATELET COUNT (AUTO) 380 K/uL (152-348); RED BLOOD CELL COUNT(AUTO) 2.61 MIL/uL (4.06-5.63); RED CELL DISTRIBUTION WIDTH 13.5 % (12.1-16.2); WHITE BLOOD COUNT (AUTO) 17.3 K/uL (3.6-10.2)
[2024-05-02 05:31] LABS: DIFFERENTIAL COMMENT 1
[2024-05-02 05:42] LABS: CALCIUM 8.3 mg/dL (8.5-10.1); CREATININE 4.9 mg/dL (0.6-1.3); POTASSIUM 4.7 mmol/L (3.5-5.1)
[2024-05-02 06:25] LABS: FIBRINOGEN ACTIVITY > 450 mg/dL (210-360)
[2024-05-03] VITALS (43 sets, daily range): BP systolic 90–156; BP diastolic 50–92; TEMP 97.8–101; O2SAT 94–100
[2024-05-03 04:39] LABS: BASOPHILS # (AUTO) 0.4 K/UL (0.0-0.2); BASOPHILS % (AUTO) 2.4 % (0.0-2.0); EOSINOPHILS # (AUTO) 0.1 K/uL (0.0-0.7); EOSINOPHILS % (AUTO) 0.6 % (0.0-7.0); LYMPHOCYTES # (AUTO) 0.7 K/uL (0.8-4.8); LYMPHOCYTES % (AUTO) 5.1 % (20.5-51.5); MEAN CORPUSCULAR HEMOGLOBIN 31.1 uug (23.8-33.4); MEAN CORPUSCULAR HGB CONC 34 g/dL (32.5-36.3); MEAN CORPUSCULAR VOLUME 91.4 fL (73.0-96.2); MONOCYTES # (AUTO) 1.5 K/uL (0.1-1.30); MONOCYTES % (AUTO) 10.5 % (0.0-11.0); NEUTROPHILS # (AUTO) 11.8 K/uL (1.8-8.9); NEUTROPHILS % (AUTO) 81.4 % (38.5-71.5); PLATELET COUNT (AUTO) 345 K/uL (152-348); RED CELL DISTRIBUTION WIDTH 13.6 % (12.1-16.2); WHITE BLOOD COUNT (AUTO) 14.5 K/uL (3.6-10.2)
[2024-05-03 05:02] LABS: DIFFERENTIAL COMMENT 1; RED BLOOD CELL COUNT(AUTO) 2.24 MIL/uL (4.06-5.63)
[2024-05-03 05:05] LABS: HEMATOCRIT 20.5 % (36.7-47.1)
[2024-05-03 05:17] LABS: FIBRINOGEN ACTIVITY 427 mg/dL (210-360)
[2024-05-03] MEDS: NEPRO 1000 ML GT PRN (12:16)
[2024-05-03] MEDS: PRECEDEX 400 MCG/100 ML BOTTLE 100 ML IV PRN (13:08)
[2024-05-03] MEDS: diphenhydrAMINE 50 MG/1 ML VIAL IV ONE (14:10)
[2024-05-03] MEDS ORDERED: CEFEPIME HCL 1 G in IV DEXTROSE 5% 50 ML IV SCH (21:30)
[2024-05-03] MEDS ORDERED: CEFEPIME HCL 1 G VIAL ONE (23:18)
[2024-05-03] MEDS ORDERED: VANCOMYCIN IV 200 ML ONE (23:19)
[2024-05-03] MEDS: CEFEPIME HCL 1 G in IV DEXTROSE 5% 50 ML IV ONE (23:44)
[2024-05-03] MEDS: VANCOMYCIN IV 1,000 MG in IV NORMAL SALINE 250 ML IV ONE (23:45)
[2024-05-04] VITALS (66 sets, daily range): BP systolic 82–159; BP diastolic 47–92; TEMP 97.7–100.4; O2SAT 93–100
[2024-05-04 05:07] LABS: BASOPHILS # (AUTO) 0.1 K/UL (0.0-0.2); EOSINOPHILS # (AUTO) 0.1 K/uL (0.0-0.7); EOSINOPHILS % (AUTO) 0.7 % (0.0-7.0); HEMATOCRIT 22.6 % (36.7-47.1); HEMOGLOBIN 7.7 g/dL (12.5-16.3); LYMPHOCYTES # (AUTO) 0.5 K/uL (0.8-4.8); LYMPHOCYTES % (AUTO) 4.2 % (20.5-51.5); MEAN CORPUSCULAR HEMOGLOBIN 31.3 uug (23.8-33.4); MEAN CORPUSCULAR HGB CONC 34 g/dL (32.5-36.3); MEAN CORPUSCULAR VOLUME 91.5 fL (73.0-96.2); MONOCYTES # (AUTO) 1.2 K/uL (0.1-1.30); MONOCYTES % (AUTO) 9.4 % (0.0-11.0); NEUTROPHILS # (AUTO) 10.9 K/uL (1.8-8.9); NEUTROPHILS % (AUTO) 84.7 % (38.5-71.5); PLATELET COUNT (AUTO) 321 K/uL (152-348); RED CELL DISTRIBUTION WIDTH 13.3 % (12.1-16.2); WHITE BLOOD COUNT (AUTO) 12.9 K/uL (3.6-10.2)
[2024-05-04 05:12] LABS: DIFFERENTIAL COMMENT 1; RED BLOOD CELL COUNT(AUTO) 2.47 MIL/uL (4.06-5.63)
[2024-05-04 05:24] LABS: CREATININE 4.7 mg/dL (0.6-1.3); POTASSIUM 4.1 mmol/L (3.5-5.1)
[2024-05-04 05:37] LABS: FIBRINOGEN ACTIVITY 386 mg/dL (210-360)
[2024-05-04] MEDS ORDERED: PROPOFOL 100 ML IV PRN (07:45)
[2024-05-04] MEDS ORDERED: PROPOFOL 200 MG/20 ML BOTTLE IV ONE (08:00)
[2024-05-04] MEDS: PROPOFOL 100 ML IV ONE (08:44)
[2024-05-04] MEDS: NOREPINEPHRINE 8MG/NS 250ML 250 ML IV PRN (09:11)
[2024-05-04] MEDS: NUTRISOURCE FIBER 4 GM PACKET GT SCH (17:16)
[2024-05-04] MEDS: NEPRO 1000 ML GT PRN (20:07)
[2024-05-04] MEDS: LINEZOLID 600 MG TABLET NG SCH (20:31)
[2024-05-04] MEDS: CEFEPIME HCL 0.5 G in IV DEXTROSE 5% 50 ML IV SCH (22:14)
[2024-05-05] VITALS (61 sets, daily range): BP systolic 87–160; BP diastolic 57–94; TEMP 97.7–100.4; O2SAT 97–100
[2024-05-05 05:06] LABS: BASOPHILS # (AUTO) 0.1 K/UL (0.0-0.2); BASOPHILS % (AUTO) 1.4 % (0.0-2.0); EOSINOPHILS # (AUTO) 0.2 K/uL (0.0-0.7); EOSINOPHILS % (AUTO) 2.3 % (0.0-7.0); HEMATOCRIT 24.2 % (36.7-47.1); HEMOGLOBIN 8.4 g/dL (12.5-16.3); LYMPHOCYTES # (AUTO) 0.7 K/uL (0.8-4.8); LYMPHOCYTES % (AUTO) 6.4 % (20.5-51.5); MEAN CORPUSCULAR HEMOGLOBIN 31.3 uug (23.8-33.4); MEAN CORPUSCULAR HGB CONC 35 g/dL (32.5-36.3); MEAN CORPUSCULAR VOLUME 90.6 fL (73.0-96.2); MONOCYTES # (AUTO) 0.9 K/uL (0.1-1.30); MONOCYTES % (AUTO) 8.9 % (0.0-11.0); NEUTROPHILS # (AUTO) 8.6 K/uL (1.8-8.9); PLATELET COUNT (AUTO) 324 K/uL (152-348); RED BLOOD CELL COUNT(AUTO) 2.67 MIL/uL (4.06-5.63); RED CELL DISTRIBUTION WIDTH 13.1 % (12.1-16.2); WHITE BLOOD COUNT (AUTO) 10.6 K/uL (3.6-10.2)
[2024-05-05 05:08] LABS: DIFFERENTIAL COMMENT 1
[2024-05-05 05:17] LABS: CREATININE 5.5 mg/dL (0.6-1.3); PHOSPHOROUS 6.7 mg/dL (2.5-4.9); POTASSIUM 4.4 mmol/L (3.5-5.1)
[2024-05-05 06:01] LABS: ABG BASE EXCESS 1.7 mmol/L (-2.0-3.0); ABG HCO3 25.6 mmol/L (21.0-28.0); ABG PCO2 37.4 mmHg (35.0-48.0); ABG PH 7.454 (7.350-7.450); ABG PO2 49.2 mmHg (83.0-108.0); ABG SITE LEFT RADIAL; ABG TOTAL HEMOGLOBIN 8.2 G/dL (13.5-17.5); AaDO2 86.8 mmHg; COHb 0.3 % (0.5-1.5); MetHb 0.4 % (0.0-1.5); O2Hb 83.5 % (94.0-98.0); VT, ABG 20 mL
[2024-05-05] MEDS: NEPRO 1000 ML GT PRN (09:49)
[2024-05-05] MEDS: MIDAZOLAM HCL 50 MG in IV NORMAL SALINE 40 ML IV PRN (11:51)
[2024-05-05] MEDS: CEFEPIME HCL 1 G in IV DEXTROSE 5% 50 ML IV SCH (20:46)
[2024-05-06] VITALS (77 sets, daily range): BP systolic 85–152; BP diastolic 53–112; TEMP 98.4–99.9; O2SAT 94–100
[2024-05-06 05:06] LABS: BASOPHILS # (AUTO) 0.1 K/UL (0.0-0.2); BASOPHILS % (AUTO) 1.2 % (0.0-2.0); EOSINOPHILS # (AUTO) 0.2 K/uL (0.0-0.7); EOSINOPHILS % (AUTO) 2.9 % (0.0-7.0); HEMATOCRIT 23.5 % (36.7-47.1); LYMPHOCYTES # (AUTO) 0.7 K/uL (0.8-4.8); LYMPHOCYTES % (AUTO) 9.2 % (20.5-51.5); MEAN CORPUSCULAR HEMOGLOBIN 30.9 uug (23.8-33.4); MEAN CORPUSCULAR HGB CONC 34 g/dL (32.5-36.3); MEAN CORPUSCULAR VOLUME 90.5 fL (73.0-96.2); MONOCYTES # (AUTO) 0.8 K/uL (0.1-1.30); MONOCYTES % (AUTO) 10.4 % (0.0-11.0); NEUTROPHILS % (AUTO) 76.3 % (38.5-71.5); PLATELET COUNT (AUTO) 240 K/uL (152-348); RED BLOOD CELL COUNT(AUTO) 2.59 MIL/uL (4.06-5.63); RED CELL DISTRIBUTION WIDTH 12.9 % (12.1-16.2); WHITE BLOOD COUNT (AUTO) 7.9 K/uL (3.6-10.2)
[2024-05-06 05:11] LABS: DIFFERENTIAL COMMENT 1
[2024-05-06 05:15] LABS: CREATININE 3.7 mg/dL (0.6-1.3); POTASSIUM 3.6 mmol/L (3.5-5.1)
[2024-05-06 05:18] LABS: ALBUMIN 2.3 g/dL (3.4-5.0); BILIRUBIN,DIRECT 0.5 mg/dL (0.0-0.2); BILIRUBIN,TOTAL 0.8 mg/dL (0.2-1.0); MAGNESIUM 1.9 mg/dL (1.8-2.4); PHOSPHOROUS 4.8 mg/dL (2.5-4.9); TOTAL PROTEIN, SERUM 6.6 g/dL (6.4-8.2)
[2024-05-06 06:12] LABS: ABG BASE EXCESS 5.1 mmol/L (-2.0-3.0); ABG HCO3 28.6 mmol/L (21.0-28.0); ABG PCO2 37.5 mmHg (35.0-48.0); ABG PO2 127.6 mmHg (83.0-108.0); ABG SITE LEFT RADIAL; ABG TOTAL HEMOGLOBIN 8.4 G/dL (13.5-17.5); AaDO2 98.8 mmHg; COHb 0.2 % (0.5-1.5); MetHb 0.1 % (0.0-1.5); O2Hb 98.4 % (94.0-98.0); VT, ABG 450 mL
[2024-05-06] MEDS: ASPIRIN 81 MG TAB.CHEW GT SCH (08:37)
[2024-05-07] VITALS (82 sets, daily range): BP systolic 85–178; BP diastolic 52–92; TEMP 97.8–99.9; O2SAT 99–100
[2024-05-07 05:34] LABS: BASOPHILS # (AUTO) 0.1 K/UL (0.0-0.2); BASOPHILS % (AUTO) 2.2 % (0.0-2.0); EOSINOPHILS # (AUTO) 0.3 K/uL (0.0-0.7); EOSINOPHILS % (AUTO) 5.6 % (0.0-7.0); LYMPHOCYTES # (AUTO) 0.6 K/uL (0.8-4.8); LYMPHOCYTES % (AUTO) 10.6 % (20.5-51.5); MEAN CORPUSCULAR HEMOGLOBIN 31.3 uug (23.8-33.4); MEAN CORPUSCULAR HGB CONC 34 g/dL (32.5-36.3); MEAN CORPUSCULAR VOLUME 91.5 fL (73.0-96.2); MONOCYTES # (AUTO) 0.7 K/uL (0.1-1.30); MONOCYTES % (AUTO) 11.1 % (0.0-11.0); NEUTROPHILS # (AUTO) 4.2 K/uL (1.8-8.9); NEUTROPHILS % (AUTO) 70.5 % (38.5-71.5); PLATELET COUNT (AUTO) 198 K/uL (152-348); RED CELL DISTRIBUTION WIDTH 12.9 % (12.1-16.2)
[2024-05-07 05:43] LABS: RED BLOOD CELL COUNT(AUTO) 2.13 MIL/uL (4.06-5.63)
[2024-05-07 05:44] LABS: ALBUMIN 1.9 g/dL (3.4-5.0); BILIRUBIN,DIRECT 0.3 mg/dL (0.0-0.2); BILIRUBIN,TOTAL 0.7 mg/dL (0.2-1.0); HEMATOCRIT 19.5 % (36.7-47.1); HEMOGLOBIN 6.7 g/dL (12.5-16.3); MAGNESIUM 1.8 mg/dL (1.8-2.4); PHOSPHOROUS 4.8 mg/dL (2.5-4.9)
[2024-05-07 05:45] LABS: DIFFERENTIAL COMMENT 1
[2024-05-07 06:09] LABS: ABG HCO3 27.9 mmol/L (21.0-28.0); ABG PH 7.473 (7.350-7.450); ABG PO2 54.1 mmHg (83.0-108.0); ABG SITE LEFT RADIAL; ABG TOTAL HEMOGLOBIN 8.5 G/dL (13.5-17.5); AaDO2 90.2 mmHg; COHb 0.1 % (0.5-1.5); MetHb 0.1 % (0.0-1.5); O2Hb 88.2 % (94.0-98.0); VT, ABG 450 mL
[2024-05-07 06:48] LABS: CALCIUM 7.3 mg/dL (8.5-10.1); CREATININE 4.1 mg/dL (0.6-1.3); POTASSIUM 3.6 mmol/L (3.5-5.1)
[2024-05-07 08:00] LABS: LYMPHOCYTES % (MANUAL) 10 % (20-40); MONOCYTES % (MANUAL) 8 % (2-10); NEUTROPHILS % (MANUAL) 82 % (42-75); PLATELET ESTIMATE ADEQUATE
[2024-05-07 08:01] LABS: ANISOCYTOSIS 1+
[2024-05-07] MEDS: ARGININE/GLUTAMINE/CALCIUM BMB 1 EACH POWD.PACK GT SCH (08:53)
[2024-05-07] MEDS: QUETIAPINE FUMARATE 25 MG TABLET PO SCH (21:05)
[2024-05-07] MEDS ORDERED: VANCOMYCIN IV 200 ML ONE (22:37)
[2024-05-07] MEDS: VANCOMYCIN IV 1,000 MG in IV DEXTROSE 5% 250 ML IV ONE (22:54)
[2024-05-07 23:11] LABS: BASOPHILS # (AUTO) 0.2 K/UL (0.0-0.2); BASOPHILS % (AUTO) 2.2 % (0.0-2.0); EOSINOPHILS # (AUTO) 0.6 K/uL (0.0-0.7); EOSINOPHILS % (AUTO) 6.3 % (0.0-7.0); HEMATOCRIT 28.8 % (36.7-47.1); HEMOGLOBIN 9.8 g/dL (12.5-16.3); LYMPHOCYTES % (AUTO) 10.9 % (20.5-51.5); MEAN CORPUSCULAR HEMOGLOBIN 30.4 uug (23.8-33.4); MEAN CORPUSCULAR HGB CONC 34 g/dL (32.5-36.3); MEAN CORPUSCULAR VOLUME 89.2 fL (73.0-96.2); MONOCYTES # (AUTO) 1.1 K/uL (0.1-1.30); MONOCYTES % (AUTO) 11.6 % (0.0-11.0); NEUTROPHILS # (AUTO) 6.6 K/uL (1.8-8.9); PLATELET COUNT (AUTO) 248 K/uL (152-348); RED BLOOD CELL COUNT(AUTO) 3.23 MIL/uL (4.06-5.63); RED CELL DISTRIBUTION WIDTH 13.3 % (12.1-16.2); WHITE BLOOD COUNT (AUTO) 9.5 K/uL (3.6-10.2)
[2024-05-07 23:17] LABS: DIFFERENTIAL COMMENT 1
[2024-05-07] MEDS ORDERED: diphenhydrAMINE 25 MG/10 ML UDC ONE (23:24)
[2024-05-07] MEDS: diphenhydrAMINE 25 MG/10 ML UDC NG PRN (23:26)
[2024-05-08] VITALS (55 sets, daily range): BP systolic 99–146; BP diastolic 61–91; TEMP 98.1–98.7; O2SAT 98–100
[2024-05-08 05:08] LABS: BASOPHILS # (AUTO) 0.1 K/UL (0.0-0.2); BASOPHILS % (AUTO) 1.1 % (0.0-2.0); EOSINOPHILS # (AUTO) 0.4 K/uL (0.0-0.7); HEMATOCRIT 27.3 % (36.7-47.1); HEMOGLOBIN 9.4 g/dL (12.5-16.3); LYMPHOCYTES # (AUTO) 0.8 K/uL (0.8-4.8); LYMPHOCYTES % (AUTO) 10.9 % (20.5-51.5); MEAN CORPUSCULAR HEMOGLOBIN 30.7 uug (23.8-33.4); MEAN CORPUSCULAR HGB CONC 34 g/dL (32.5-36.3); MEAN CORPUSCULAR VOLUME 89.4 fL (73.0-96.2); MONOCYTES # (AUTO) 0.8 K/uL (0.1-1.30); MONOCYTES % (AUTO) 11.3 % (0.0-11.0); NEUTROPHILS % (AUTO) 70.7 % (38.5-71.5); PLATELET COUNT (AUTO) 227 K/uL (152-348); RED BLOOD CELL COUNT(AUTO) 3.05 MIL/uL (4.06-5.63); RED CELL DISTRIBUTION WIDTH 13.2 % (12.1-16.2); WHITE BLOOD COUNT (AUTO) 7.1 K/uL (3.6-10.2)
[2024-05-08 05:16] LABS: CALCIUM 7.9 mg/dL (8.5-10.1); CREATININE 2.2 mg/dL (0.6-1.3); POTASSIUM 3.3 mmol/L (3.5-5.1)
[2024-05-08 05:20] LABS: MAGNESIUM 1.7 mg/dL (1.8-2.4)
[2024-05-08 05:26] LABS: DIFFERENTIAL COMMENT 1
[2024-05-08 08:40] LABS: ABG BASE EXCESS 2.6 mmol/L (-2.0-3.0); ABG HCO3 26.1 mmol/L (21.0-28.0); ABG PCO2 34.1 mmHg (35.0-48.0); ABG PH 7.501 (7.350-7.450); ABG PO2 109.9 mmHg (83.0-108.0); ABG SITE RIGHT RADIAL; AaDO2 98.4 mmHg; COHb 1.2 % (0.5-1.5); CPAP,BG 0 cmH20; MetHb 0.5 % (0.0-1.5); O2Hb 96.5 % (94.0-98.0)
[2024-05-08] MEDS ORDERED: DC PROPOFOL ONCE EXTUBATED XX PRN (08:45)
[2024-05-08] MEDS: POTASSIUM CHLORIDE 20 MEQ POWDER PACKET GT ONE (12:19)
[2024-05-08] MEDS: MAGNESIUM OXIDE 400 MG TABLET GT ONE (12:20)
[2024-05-08] MEDS ORDERED: VANCOMYCIN IV 500 MG in IV DEXTROSE 5% 100 ML IV PRN (16:00)
[2024-05-09] VITALS (40 sets, daily range): BP systolic 92–127; BP diastolic 55–90; TEMP 97.5–98.7; O2SAT 99–100
[2024-05-09 05:21] LABS: ABG BASE EXCESS 3.1 mmol/L (-2.0-3.0); ABG HCO3 25.3 mmol/L (21.0-28.0); ABG PCO2 30.1 mmHg (35.0-48.0); ABG PH 7.543 (7.350-7.450); ABG PO2 107.2 mmHg (83.0-108.0); ABG SITE RIGHT RADIAL; ABG TOTAL HEMOGLOBIN 9.3 G/dL (13.5-17.5); AaDO2 98.5 mmHg; COHb 0.3 % (0.5-1.5); MetHb 0.2 % (0.0-1.5); O2Hb 97.4 % (94.0-98.0); VT, ABG 450 mL
[2024-05-09 05:40] LABS: BASOPHILS % (AUTO) 0.6 % (0.0-2.0); EOSINOPHILS # (AUTO) 0.5 K/uL (0.0-0.7); EOSINOPHILS % (AUTO) 8.1 % (0.0-7.0); HEMATOCRIT 24.5 % (36.7-47.1); HEMOGLOBIN 8.5 g/dL (12.5-16.3); LYMPHOCYTES % (AUTO) 14.6 % (20.5-51.5); MEAN CORPUSCULAR HEMOGLOBIN 30.9 uug (23.8-33.4); MEAN CORPUSCULAR HGB CONC 35 g/dL (32.5-36.3); NEUTROPHILS % (AUTO) 61.7 % (38.5-71.5); PLATELET COUNT (AUTO) 217 K/uL (152-348); RED BLOOD CELL COUNT(AUTO) 2.75 MIL/uL (4.06-5.63); RED CELL DISTRIBUTION WIDTH 13.2 % (12.1-16.2); WHITE BLOOD COUNT (AUTO) 6.5 K/uL (3.6-10.2)
[2024-05-09 05:42] LABS: NEUTROPHILS % (MANUAL) 0 % (42-75)
[2024-05-09 05:51] LABS: CALCIUM 8.6 mg/dL (8.5-10.1); CREATININE 2.4 mg/dL (0.6-1.3); POTASSIUM 3.5 mmol/L (3.5-5.1)
[2024-05-09 05:55] LABS: PHOSPHOROUS 3.7 mg/dL (2.5-4.9)
[2024-05-09] MEDS: MIRALAX 17 GM POWD.PACK PO SCH (20:09)
[2024-05-09] MEDS: DOCUSATE SODIUM 100 MG CAPSULE PO SCH (20:20)
[2024-05-10] VITALS (38 sets, daily range): BP systolic 98–135; BP diastolic 64–87; TEMP 97.2–98.7; O2SAT 98–100
[2024-05-10 05:28] LABS: ABG BASE EXCESS 4.8 mmol/L (-2.0-3.0); ABG PCO2 36.1 mmHg (35.0-48.0); ABG PH 7.508 (7.350-7.450); ABG SITE RIGHT RADIAL; ABG TOTAL HEMOGLOBIN 9.9 G/dL (13.5-17.5); AaDO2 98.9 mmHg; COHb 0.3 % (0.5-1.5); MetHb 0.2 % (0.0-1.5); VT, ABG 450 mL
[2024-05-10 05:49] LABS: BASOPHILS # (AUTO) 0.1 K/UL (0.0-0.2); BASOPHILS % (AUTO) 1.1 % (0.0-2.0); EOSINOPHILS # (AUTO) 0.6 K/uL (0.0-0.7); EOSINOPHILS % (AUTO) 6.9 % (0.0-7.0); HEMATOCRIT 24.8 % (36.7-47.1); HEMOGLOBIN 8.7 g/dL (12.5-16.3); LYMPHOCYTES # (AUTO) 0.9 K/uL (0.8-4.8); LYMPHOCYTES % (AUTO) 10.7 % (20.5-51.5); MEAN CORPUSCULAR HEMOGLOBIN 31.3 uug (23.8-33.4); MEAN CORPUSCULAR HGB CONC 35 g/dL (32.5-36.3); MEAN CORPUSCULAR VOLUME 88.8 fL (73.0-96.2); MONOCYTES # (AUTO) 1.2 K/uL (0.1-1.30); MONOCYTES % (AUTO) 14.1 % (0.0-11.0); NEUTROPHILS # (AUTO) 5.9 K/uL (1.8-8.9); NEUTROPHILS % (AUTO) 67.2 % (38.5-71.5); PLATELET COUNT (AUTO) 293 K/uL (152-348); RED BLOOD CELL COUNT(AUTO) 2.79 MIL/uL (4.06-5.63); RED CELL DISTRIBUTION WIDTH 13.2 % (12.1-16.2); WHITE BLOOD COUNT (AUTO) 8.7 K/uL (3.6-10.2)
[2024-05-10 05:50] LABS: DIFFERENTIAL COMMENT 1
[2024-05-10 05:51] LABS: CALCIUM 8.3 mg/dL (8.5-10.1); CREATININE 2.1 mg/dL (0.6-1.3); POTASSIUM 3.4 mmol/L (3.5-5.1)
[2024-05-10 06:22] LABS: MAGNESIUM 1.9 mg/dL (1.8-2.4); PHOSPHOROUS 3.9 mg/dL (2.5-4.9)
[2024-05-10] MEDS: CEFEPIME HCL 1 G in IV DEXTROSE 5% 50 ML IV SCH (10:52)
[2024-05-10] MEDS: POTASSIUM CHLORIDE 20 MEQ POWDER PACKET GT ONE (11:51)
[2024-05-10] MEDS: VANCOMYCIN IV 1,000 MG in IV DEXTROSE 5% 250 ML IV ONE (14:50)
[2024-05-10] MEDS: QUETIAPINE FUMARATE 25 MG TABLET PO SCH (17:57)
[2024-05-10 20:38] LABS: *OCCULT BLOOD STOOL NEGATIVE (NEGATIVE)
[2024-05-11] VITALS (57 sets, daily range): BP systolic 96–145; BP diastolic 62–110; TEMP 98.1–99.6; O2SAT 98–100
[2024-05-11 05:27] LABS: BASOPHILS # (AUTO) 0.2 K/UL (0.0-0.2); BASOPHILS % (AUTO) 2.3 % (0.0-2.0); EOSINOPHILS # (AUTO) 0.5 K/uL (0.0-0.7); EOSINOPHILS % (AUTO) 7.4 % (0.0-7.0); HEMATOCRIT 24.9 % (36.7-47.1); HEMOGLOBIN 8.5 g/dL (12.5-16.3); LYMPHOCYTES # (AUTO) 0.8 K/uL (0.8-4.8); LYMPHOCYTES % (AUTO) 12.6 % (20.5-51.5); MEAN CORPUSCULAR HEMOGLOBIN 30.3 uug (23.8-33.4); MEAN CORPUSCULAR HGB CONC 34 g/dL (32.5-36.3); MEAN CORPUSCULAR VOLUME 89.3 fL (73.0-96.2); MONOCYTES # (AUTO) 1.1 K/uL (0.1-1.30); MONOCYTES % (AUTO) 16.9 % (0.0-11.0); NEUTROPHILS % (AUTO) 60.8 % (38.5-71.5); PLATELET COUNT (AUTO) 314 K/uL (152-348); RED BLOOD CELL COUNT(AUTO) 2.79 MIL/uL (4.06-5.63); RED CELL DISTRIBUTION WIDTH 13.2 % (12.1-16.2); WHITE BLOOD COUNT (AUTO) 6.6 K/uL (3.6-10.2)
[2024-05-11 05:30] LABS: DIFFERENTIAL COMMENT 1
[2024-05-11 05:33] LABS: ABG BASE EXCESS 4.3 mmol/L (-2.0-3.0); ABG PCO2 37.7 mmHg (35.0-48.0); ABG PH 7.488 (7.350-7.450); ABG PO2 134.9 mmHg (83.0-108.0); ABG SITE RIGHT RADIAL; ABG TOTAL HEMOGLOBIN 8.8 G/dL (13.5-17.5); AaDO2 98.9 mmHg; COHb 0.4 % (0.5-1.5); MetHb 0.1 % (0.0-1.5); O2Hb 98.4 % (94.0-98.0); VT, ABG 450 mL
[2024-05-11 05:40] LABS: CALCIUM 8.6 mg/dL (8.5-10.1); CREATININE 1.7 mg/dL (0.6-1.3); POTASSIUM 3.9 mmol/L (3.5-5.1)
[2024-05-11 05:56] LABS: PHOSPHOROUS 3.7 mg/dL (2.5-4.9)
[2024-05-11 06:00] LABS: NEUTROPHILS % (MANUAL) 0 % (42-75)
[2024-05-11] MEDS ORDERED: VECURONIUM BROMIDE 10 MG VIAL ONE (14:15)
[2024-05-11] MEDS: MIDAZOLAM HCL 2 MG/2 ML VIAL IV PRN (14:45)
[2024-05-11] MEDS: FENTANYL CITRATE 100 MCG/2 ML AMPUL IV PRN (14:45)
[2024-05-11] MEDS: VECURONIUM BROMIDE 10 MG VIAL IV PRN (15:20)
[2024-05-12] VITALS (36 sets, daily range): BP systolic 113–141; BP diastolic 75–92; TEMP 98.2–99.2; O2SAT 94–100
[2024-05-12 05:27] LABS: BASOPHILS # (AUTO) 0.2 K/UL (0.0-0.2); BASOPHILS % (AUTO) 2.4 % (0.0-2.0); EOSINOPHILS # (AUTO) 0.2 K/uL (0.0-0.7); EOSINOPHILS % (AUTO) 2.7 % (0.0-7.0); HEMATOCRIT 24.8 % (36.7-47.1); HEMOGLOBIN 8.6 g/dL (12.5-16.3); LYMPHOCYTES # (AUTO) 1.1 K/uL (0.8-4.8); LYMPHOCYTES % (AUTO) 12.6 % (20.5-51.5); MEAN CORPUSCULAR HGB CONC 35 g/dL (32.5-36.3); MONOCYTES # (AUTO) 1.6 K/uL (0.1-1.30); MONOCYTES % (AUTO) 17.1 % (0.0-11.0); NEUTROPHILS # (AUTO) 5.9 K/uL (1.8-8.9); NEUTROPHILS % (AUTO) 65.2 % (38.5-71.5); PLATELET COUNT (AUTO) 431 K/uL (152-348); RED BLOOD CELL COUNT(AUTO) 2.79 MIL/uL (4.06-5.63); RED CELL DISTRIBUTION WIDTH 13.2 % (12.1-16.2); WHITE BLOOD COUNT (AUTO) 9.1 K/uL (3.6-10.2)
[2024-05-12 05:30] LABS: ABG BASE EXCESS 3.2 mmol/L (-2.0-3.0); ABG HCO3 25.9 mmol/L (21.0-28.0); ABG PCO2 32.1 mmHg (35.0-48.0); ABG PH 7.524 (7.350-7.450); ABG PO2 135.9 mmHg (83.0-108.0); ABG SITE RIGHT RADIAL; ABG TOTAL HEMOGLOBIN 9.3 G/dL (13.5-17.5); COHb 0.3 % (0.5-1.5); MetHb 0.2 % (0.0-1.5); O2Hb 98.2 % (94.0-98.0); VT, ABG 450 mL
[2024-05-12 05:34] LABS: CALCIUM 8.9 mg/dL (8.5-10.1); CREATININE 1.4 mg/dL (0.6-1.3); POTASSIUM 3.7 mmol/L (3.5-5.1)
[2024-05-12 05:36] LABS: DIFFERENTIAL COMMENT 1
[2024-05-12 05:37] LABS: NEUTROPHILS % (MANUAL) 0 % (42-75)
[2024-05-12 05:38] LABS: MAGNESIUM 1.9 mg/dL (1.8-2.4); PHOSPHOROUS 3.2 mg/dL (2.5-4.9); VANCOMYCIN,RANDOM 10.8 ug/mL (20.0-30.0)
[2024-05-12] MEDS: VANCOMYCIN IV 1,000 MG in IV DEXTROSE 5% 250 ML IV ONE (08:49)
[2024-05-12 11:12] LABS: IRON, SERUM 38 ug/dL (50-175)
[2024-05-12 11:25] LABS: FERRITIN 768 ng/mL (26-388)
[2024-05-12] MEDS ORDERED: PROPOFOL 200 MG/20 ML BOTTLE ONE (18:00)
[2024-05-13] VITALS (50 sets, daily range): BP systolic 113–141; BP diastolic 77–95; TEMP 97.8–99.5; O2SAT 96–100
[2024-05-13 05:27] LABS: BASOPHILS # (AUTO) 0.2 K/UL (0.0-0.2); BASOPHILS % (AUTO) 2.4 % (0.0-2.0); EOSINOPHILS # (AUTO) 0.1 K/uL (0.0-0.7); EOSINOPHILS % (AUTO) 1.6 % (0.0-7.0); HEMATOCRIT 25.3 % (36.7-47.1); HEMOGLOBIN 8.6 g/dL (12.5-16.3); LYMPHOCYTES # (AUTO) 1.1 K/uL (0.8-4.8); LYMPHOCYTES % (AUTO) 11.2 % (20.5-51.5); MEAN CORPUSCULAR HEMOGLOBIN 30.6 uug (23.8-33.4); MEAN CORPUSCULAR HGB CONC 34 g/dL (32.5-36.3); MEAN CORPUSCULAR VOLUME 89.7 fL (73.0-96.2); MONOCYTES % (AUTO) 20.7 % (0.0-11.0); NEUTROPHILS # (AUTO) 6.1 K/uL (1.8-8.9); NEUTROPHILS % (AUTO) 64.1 % (38.5-71.5); PLATELET COUNT (AUTO) 551 K/uL (152-348); RED BLOOD CELL COUNT(AUTO) 2.82 MIL/uL (4.06-5.63); RED CELL DISTRIBUTION WIDTH 13.3 % (12.1-16.2); WHITE BLOOD COUNT (AUTO) 9.5 K/uL (3.6-10.2)
[2024-05-13 05:36] LABS: CALCIUM 8.7 mg/dL (8.5-10.1); CREATININE 1.1 mg/dL (0.6-1.3); POTASSIUM 3.8 mmol/L (3.5-5.1)
[2024-05-13 05:39] LABS: DIFFERENTIAL COMMENT 1
[2024-05-13 05:46] LABS: MAGNESIUM 1.7 mg/dL (1.8-2.4); PHOSPHOROUS 3.3 mg/dL (2.5-4.9); VANCOMYCIN,RANDOM 10.5 ug/mL (20.0-30.0)
[2024-05-13 06:03] LABS: ANISOCYTOSIS 1+; EOSINOPHILS % (MANUAL) 3 % (0-8); LYMPHOCYTES % (MANUAL) 10 % (20-40); MONOCYTES % (MANUAL) 20 % (2-10); NEUTROPHILS % (MANUAL) 67 % (42-75); PLATELET ESTIMATE ADEQUATE
[2024-05-13] MEDS: VANCOMYCIN HCL 750 MG in IV DEXTROSE 5% 250 ML IV SCH (08:34)
[2024-05-13] MEDS: MAGNESIUM SULFATE/D5W 100 ML IV SCH (11:03)
[2024-05-13] MEDS ORDERED: SEVELAMER CARBONATE 800 MG POWD.PACK NG SCH ×2 (12:00)
[2024-05-13] MEDS: DOCUSATE SODIUM 100 MG/10 ML LIQUID UDC GT SCH (21:21)
[2024-05-14] VITALS (39 sets, daily range): BP systolic 103–130; BP diastolic 73–91; TEMP 97.5–99.2; O2SAT 97–100
[2024-05-14 05:12] LABS: BASOPHILS # (AUTO) 0.3 K/UL (0.0-0.2); BASOPHILS % (AUTO) 4.5 % (0.0-2.0); EOSINOPHILS # (AUTO) 0.2 K/uL (0.0-0.7); EOSINOPHILS % (AUTO) 3.2 % (0.0-7.0); HEMATOCRIT 24.5 % (36.7-47.1); HEMOGLOBIN 8.5 g/dL (12.5-16.3); LYMPHOCYTES # (AUTO) 1.3 K/uL (0.8-4.8); LYMPHOCYTES % (AUTO) 20.9 % (20.5-51.5); MEAN CORPUSCULAR HEMOGLOBIN 30.9 uug (23.8-33.4); MEAN CORPUSCULAR HGB CONC 35 g/dL (32.5-36.3); MEAN CORPUSCULAR VOLUME 89.5 fL (73.0-96.2); MONOCYTES # (AUTO) 1.4 K/uL (0.1-1.30); MONOCYTES % (AUTO) 21.6 % (0.0-11.0); NEUTROPHILS # (AUTO) 3.1 K/uL (1.8-8.9); NEUTROPHILS % (AUTO) 49.8 % (38.5-71.5); PLATELET COUNT (AUTO) 460 K/uL (152-348); RED BLOOD CELL COUNT(AUTO) 2.74 MIL/uL (4.06-5.63); RED CELL DISTRIBUTION WIDTH 13.1 % (12.1-16.2); WHITE BLOOD COUNT (AUTO) 6.3 K/uL (3.6-10.2)
[2024-05-14 05:28] LABS: DIFFERENTIAL COMMENT 1
[2024-05-14 05:38] LABS: ALBUMIN 2.7 g/dL (3.4-5.0); BILIRUBIN,DIRECT 0.4 mg/dL (0.0-0.2); BILIRUBIN,TOTAL 0.8 mg/dL (0.2-1.0); MAGNESIUM 2.2 mg/dL (1.8-2.4); PHOSPHOROUS 3.2 mg/dL (2.5-4.9); POTASSIUM 3.4 mmol/L (3.5-5.1); TOTAL PROTEIN, SERUM 7.3 g/dL (6.4-8.2)
[2024-05-14 06:09] LABS: NEUTROPHILS % (MANUAL) 0 % (42-75)
[2024-05-14] MEDS: POTASSIUM CHLORIDE 20 MEQ POWDER PACKET GT ONE (10:08)
[2024-05-14] MEDS ORDERED: ETOMIDATE 20 MG/10 ML VIAL ONE (13:00)
[2024-05-15] VITALS (15 sets, daily range): BP systolic 109–129; BP diastolic 78–91; TEMP 98.6–99.2; O2SAT 96–100
[2024-05-15 05:26] LABS: BASOPHILS # (AUTO) 0.3 K/UL (0.0-0.2); EOSINOPHILS # (AUTO) 0.3 K/uL (0.0-0.7); EOSINOPHILS % (AUTO) 3.3 % (0.0-7.0); HEMATOCRIT 27.4 % (36.7-47.1); HEMOGLOBIN 9.1 g/dL (12.5-16.3); LYMPHOCYTES # (AUTO) 1.8 K/uL (0.8-4.8); LYMPHOCYTES % (AUTO) 21.5 % (20.5-51.5); MEAN CORPUSCULAR HGB CONC 33 g/dL (32.5-36.3); MEAN CORPUSCULAR VOLUME 89.9 fL (73.0-96.2); MONOCYTES # (AUTO) 1.6 K/uL (0.1-1.30); MONOCYTES % (AUTO) 19.3 % (0.0-11.0); NEUTROPHILS # (AUTO) 4.5 K/uL (1.8-8.9); NEUTROPHILS % (AUTO) 52.9 % (38.5-71.5); PLATELET COUNT (AUTO) 640 K/uL (152-348); RED BLOOD CELL COUNT(AUTO) 3.05 MIL/uL (4.06-5.63); RED CELL DISTRIBUTION WIDTH 13.5 % (12.1-16.2); WHITE BLOOD COUNT (AUTO) 8.5 K/uL (3.6-10.2)
[2024-05-15 05:28] LABS: ABG HCO3 25.1 mmol/L (21.0-28.0); ABG PCO2 33.6 mmHg (35.0-48.0); ABG PH 7.492 (7.350-7.450); ABG PO2 141.1 mmHg (83.0-108.0); ABG SITE RIGHT RADIAL; ABG TOTAL HEMOGLOBIN 9.9 G/dL (13.5-17.5); COHb 0.3 % (0.5-1.5); MetHb 0.3 % (0.0-1.5); O2Hb 98.1 % (94.0-98.0); VT, ABG 450 mL
[2024-05-15 05:46] LABS: DIFFERENTIAL COMMENT 1
[2024-05-15 06:03] LABS: CALCIUM 8.6 mg/dL (8.5-10.1); MAGNESIUM 1.8 mg/dL (1.8-2.4); PHOSPHOROUS 3.5 mg/dL (2.5-4.9); POTASSIUM 3.5 mmol/L (3.5-5.1)
[2024-05-15] MEDS: PANTOPRAZOLE ORAL SUSPENSION 40 MG SUSPDR.PKT GT SCH (06:06)
[2024-05-15 06:29] LABS: EOSINOPHILS % (MANUAL) 4 % (0-8); LYMPHOCYTES % (MANUAL) 30 % (20-40); MONOCYTES % (MANUAL) 18 % (2-10); NEUTROPHILS % (MANUAL) 48 % (42-75)
[2024-05-15 06:30] LABS: PLATELET ESTIMATE INCREASED
[2024-05-15 06:31] LABS: ANISOCYTOSIS 1+
[2024-05-15] MEDS ORDERED: DOCU50LI GT (11:35)
[2024-05-15] MEDS ORDERED: OMEP20TA5 PO (11:35)
[2024-05-15] MEDS ORDERED: HEPA50007 SQ (11:35)
[2024-05-15] MEDS ORDERED: HYDR-4209 PO (11:35)
[2024-05-15] MEDS ORDERED: ALBU1.25 NEB (11:35)
[2024-05-15] MEDS ORDERED: POLY17PO4 PO (11:35)
[2024-05-15] MEDS ORDERED: Nepro GT (11:35)
[2024-05-15] MEDS ORDERED: ACET650S13 RC (11:35)
[2024-05-15] MEDS ORDERED: IPRA0.2S6 NEB (11:35)
[2024-05-15] MEDS ORDERED: ASPI81TA31 GT (11:35)
[2024-05-15] MEDS ORDERED: ACET325T53 NG (11:35)
[2024-05-15] MEDS ORDERED: METO25TA6 PO (11:35)
[2024-05-15] MEDS ORDERED: QUET25TA36 PO (11:35)
[2024-05-15] MEDS: HEPARIN SODIUM,PORCINE 5,000 UNITS/ML VIAL SQ SCH (20:59)
[2024-05-16] VITALS: BP 121/77; TEMP 98.8; O2SAT 99
[2024-05-16 05:04] VITALS: BP 112/78; TEMP 98.7; O2SAT 100
[2024-05-16 07:12] LABS: BASOPHILS # (AUTO) 0.2 K/UL (0.0-0.2); BASOPHILS % (AUTO) 3.4 % (0.0-2.0); EOSINOPHILS # (AUTO) 0.2 K/uL (0.0-0.7); EOSINOPHILS % (AUTO) 3.7 % (0.0-7.0); HEMATOCRIT 25.6 % (36.7-47.1); HEMOGLOBIN 8.8 g/dL (12.5-16.3); LYMPHOCYTES # (AUTO) 1.6 K/uL (0.8-4.8); LYMPHOCYTES % (AUTO) 25.3 % (20.5-51.5); MEAN CORPUSCULAR HEMOGLOBIN 31.1 uug (23.8-33.4); MEAN CORPUSCULAR HGB CONC 35 g/dL (32.5-36.3); MEAN CORPUSCULAR VOLUME 90.1 fL (73.0-96.2); MONOCYTES # (AUTO) 1.1 K/uL (0.1-1.30); MONOCYTES % (AUTO) 17.1 % (0.0-11.0); NEUTROPHILS # (AUTO) 3.2 K/uL (1.8-8.9); NEUTROPHILS % (AUTO) 50.5 % (38.5-71.5); PLATELET COUNT (AUTO) 516 K/uL (152-348); RED BLOOD CELL COUNT(AUTO) 2.84 MIL/uL (4.06-5.63); RED CELL DISTRIBUTION WIDTH 13.6 % (12.1-16.2); WHITE BLOOD COUNT (AUTO) 6.3 K/uL (3.6-10.2)
[2024-05-16 07:19] LABS: CALCIUM 8.9 mg/dL (8.5-10.1); POTASSIUM 3.6 mmol/L (3.5-5.1)
[2024-05-16 07:28] VITALS: BP 114/82; TEMP 99.4; O2SAT 99
[2024-05-16 07:34] LABS: DIFFERENTIAL COMMENT 1
[2024-05-16 08:57] LABS: EOSINOPHILS % (MANUAL) 4 % (0-8); LYMPHOCYTES % (MANUAL) 25 % (20-40); MONOCYTES % (MANUAL) 10 % (2-10); NEUTROPHILS % (MANUAL) 61 % (42-75); PLATELET ESTIMATE INCREASED
[2024-05-16 10:48] VITALS: BP 113/51; TEMP 98.5; O2SAT 99
[2024-05-16 15:18] VITALS: BP 114/84; TEMP 98.6; O2SAT 99
[2024-05-17] VITALS: BP 116/78; TEMP 98.8; O2SAT 98
[2024-05-17 06:47] LABS: CALCIUM 8.6 mg/dL (8.5-10.1); CREATININE 0.9 mg/dL (0.6-1.3); POTASSIUM 3.7 mmol/L (3.5-5.1)
[2024-05-17 07:04] LABS: BASOPHILS # (AUTO) 0.3 K/UL (0.0-0.2); BASOPHILS % (AUTO) 3.1 % (0.0-2.0); DIFFERENTIAL COMMENT 0; EOSINOPHILS # (AUTO) 0.3 K/uL (0.0-0.7); HEMATOCRIT 26.1 % (36.7-47.1); LYMPHOCYTES # (AUTO) 1.7 K/uL (0.8-4.8); LYMPHOCYTES % (AUTO) 18.6 % (20.5-51.5); MEAN CORPUSCULAR HEMOGLOBIN 31.1 uug (23.8-33.4); MEAN CORPUSCULAR HGB CONC 35 g/dL (32.5-36.3); MEAN CORPUSCULAR VOLUME 89.8 fL (73.0-96.2); MONOCYTES # (AUTO) 1.4 K/uL (0.1-1.30); MONOCYTES % (AUTO) 14.7 % (0.0-11.0); NEUTROPHILS # (AUTO) 5.7 K/uL (1.8-8.9); NEUTROPHILS % (AUTO) 60.6 % (38.5-71.5); PLATELET COUNT (AUTO) 559 K/uL (152-348); RED CELL DISTRIBUTION WIDTH 13.4 % (12.1-16.2); WHITE BLOOD COUNT (AUTO) 9.4 K/uL (3.6-10.2)
[2024-05-17 08:00] VITALS: BP 106/78; TEMP 99.4; O2SAT 100
[2024-05-17 11:21] LABS: EOSINOPHILS % (MANUAL) 4 % (0-8); LYMPHOCYTES % (MANUAL) 24 % (20-40); METAMYELOCYTES % 3 % (0-1); MONOCYTES % (MANUAL) 8 % (2-10); MYELOCYTES % 1 % (0-0); NEUTROPHILS % (MANUAL) 60 % (42-75); PLATELET ESTIMATE INCREASED
[2024-05-17 12:00] VITALS: BP 106/67; TEMP 98.2; O2SAT 100
[2024-05-17 15:53] VITALS: BP 120/80; TEMP 99.3; O2SAT 97
[2024-05-17 19:50] VITALS: BP 117/85; TEMP 98.3; O2SAT 100
[2024-05-18] VITALS (7 sets, daily range): BP systolic 107–130; BP diastolic 71–86; TEMP 98.1–99.1; O2SAT 97–100
[2024-05-18 06:46] LABS: BASOPHILS # (AUTO) 0.3 K/UL (0.0-0.2); BASOPHILS % (AUTO) 3.1 % (0.0-2.0); EOSINOPHILS # (AUTO) 0.2 K/uL (0.0-0.7); EOSINOPHILS % (AUTO) 2.6 % (0.0-7.0); HEMATOCRIT 25.9 % (36.7-47.1); LYMPHOCYTES # (AUTO) 1.9 K/uL (0.8-4.8); LYMPHOCYTES % (AUTO) 19.1 % (20.5-51.5); MEAN CORPUSCULAR HEMOGLOBIN 31.1 uug (23.8-33.4); MEAN CORPUSCULAR HGB CONC 35 g/dL (32.5-36.3); MEAN CORPUSCULAR VOLUME 89.6 fL (73.0-96.2); MONOCYTES # (AUTO) 1.1 K/uL (0.1-1.30); MONOCYTES % (AUTO) 11.8 % (0.0-11.0); NEUTROPHILS # (AUTO) 6.2 K/uL (1.8-8.9); NEUTROPHILS % (AUTO) 63.4 % (38.5-71.5); PLATELET COUNT (AUTO) 511 K/uL (152-348); RED BLOOD CELL COUNT(AUTO) 2.89 MIL/uL (4.06-5.63); RED CELL DISTRIBUTION WIDTH 13.7 % (12.1-16.2); WHITE BLOOD COUNT (AUTO) 9.7 K/uL (3.6-10.2)
[2024-05-18 06:57] LABS: DIFFERENTIAL COMMENT 1
[2024-05-18 06:59] LABS: CREATININE 0.8 mg/dL (0.6-1.3); POTASSIUM 3.6 mmol/L (3.5-5.1)
[2024-05-18 07:12] LABS: CALCIUM 9.1 mg/dL (8.5-10.1)
[2024-05-18 08:46] LABS: ABG BASE EXCESS 2.1 mmol/L (-2.0-3.0); ABG HCO3 25.6 mmol/L (21.0-28.0); ABG PCO2 35.7 mmHg (35.0-48.0); ABG PH 7.474 (7.350-7.450); ABG PO2 94.2 mmHg (83.0-108.0); ABG SITE RIGHT BRACHIAL; ABG TOTAL HEMOGLOBIN 9.9 G/dL (13.5-17.5); AaDO2 97.6 mmHg; COHb 0.3 % (0.5-1.5); MetHb 0.3 % (0.0-1.5); O2Hb 96.4 % (94.0-98.0); VT, ABG 450 mL
[2024-05-19 03:53] VITALS: BP 136/82; TEMP 99.5; O2SAT 98
[2024-05-19 06:08] LABS: ABG HCO3 25.7 mmol/L (21.0-28.0); ABG PCO2 36.6 mmHg (35.0-48.0); ABG PH 7.465 (7.350-7.450); ABG PO2 197.8 mmHg (83.0-108.0); ABG SITE LEFT RADIAL; ABG TOTAL HEMOGLOBIN 9.9 G/dL (13.5-17.5); AaDO2 99.4 mmHg; COHb 0.3 % (0.5-1.5); MetHb 0.1 % (0.0-1.5); O2Hb 98.8 % (94.0-98.0)
[2024-05-19 06:59] LABS: BASOPHILS # (AUTO) 0.3 K/UL (0.0-0.2); BASOPHILS % (AUTO) 2.1 % (0.0-2.0); EOSINOPHILS # (AUTO) 0.3 K/uL (0.0-0.7); HEMATOCRIT 25.9 % (36.7-47.1); LYMPHOCYTES # (AUTO) 1.5 K/uL (0.8-4.8); LYMPHOCYTES % (AUTO) 11.9 % (20.5-51.5); MEAN CORPUSCULAR HEMOGLOBIN 31.1 uug (23.8-33.4); MEAN CORPUSCULAR HGB CONC 35 g/dL (32.5-36.3); MEAN CORPUSCULAR VOLUME 89.7 fL (73.0-96.2); MONOCYTES # (AUTO) 1.2 K/uL (0.1-1.30); MONOCYTES % (AUTO) 9.9 % (0.0-11.0); NEUTROPHILS # (AUTO) 9.2 K/uL (1.8-8.9); NEUTROPHILS % (AUTO) 74.1 % (38.5-71.5); PLATELET COUNT (AUTO) 475 K/uL (152-348); RED BLOOD CELL COUNT(AUTO) 2.89 MIL/uL (4.06-5.63); RED CELL DISTRIBUTION WIDTH 13.4 % (12.1-16.2); WHITE BLOOD COUNT (AUTO) 12.5 K/uL (3.6-10.2)
[2024-05-19 07:10] LABS: DIFFERENTIAL COMMENT 1
[2024-05-19 07:20] LABS: CALCIUM 8.8 mg/dL (8.5-10.1); CREATININE 0.7 mg/dL (0.6-1.3); MAGNESIUM 1.7 mg/dL (1.8-2.4); PHOSPHOROUS 4.8 mg/dL (2.5-4.9); POTASSIUM 3.7 mmol/L (3.5-5.1)
[2024-05-19 07:23] VITALS: BP 115/84; TEMP 99.1; O2SAT 100
[2024-05-19] MEDS: MAGNESIUM SULFATE/D5W 100 ML IV SCH (09:55)
[2024-05-19 11:13] VITALS: BP 125/81; TEMP 98.1; O2SAT 98
[2024-05-19 13:40] LABS: *BILIRUBIN,URIN NEGATIVE (NEGATIVE); *BLOOD, URINE 3+ (NEGATIVE); *CLARITY,URINE CLEAR (CLEAR); *COLOR,URINE YELLOW (YELLOW); *KETONES,URINE NEGATIVE (NEGATIVE); *PROTEIN,URINE 2+ (NEGATIVE); *UROBILINOGEN,URINE 0.2 E.U./dl (NORMAL); LEUKOCYTE ESTERASE ,URINE 1+ (NEGATIVE); NITRITE, URINE NEGATIVE (NEGATIVE); PH,URINE 5.5 (5.0-8.0); UGLUCOSE TRACE (NEGATIVE)
[2024-05-19 13:49] LABS: BACTERIA,URINE MODERATE /HPF (NONE SEEN); SQUAMOUS EPITHELIAL CELL,UR FEW /HPF (NONE SEEN); YEAST,URINE FEW /HPF (NONE SEEN)
[2024-05-19 16:09] VITALS: BP 116/78; TEMP 98.6; O2SAT 99
[2024-05-19 19:00] VITALS: BP 115/79; TEMP 98.7; O2SAT 99
[2024-05-20] VITALS: BP 128/88; TEMP 97.7; O2SAT 100
[2024-05-20 04:00] VITALS: BP 116/87; TEMP 98.7; O2SAT 100
[2024-05-20 07:09] LABS: BASOPHILS # (AUTO) 0.2 K/UL (0.0-0.2); BASOPHILS % (AUTO) 1.5 % (0.0-2.0); EOSINOPHILS # (AUTO) 0.3 K/uL (0.0-0.7); EOSINOPHILS % (AUTO) 2.3 % (0.0-7.0); HEMATOCRIT 25.5 % (36.7-47.1); HEMOGLOBIN 8.9 g/dL (12.5-16.3); LYMPHOCYTES # (AUTO) 1.7 K/uL (0.8-4.8); MEAN CORPUSCULAR HEMOGLOBIN 31.1 uug (23.8-33.4); MEAN CORPUSCULAR HGB CONC 35 g/dL (32.5-36.3); MEAN CORPUSCULAR VOLUME 89.5 fL (73.0-96.2); MONOCYTES # (AUTO) 1.3 K/uL (0.1-1.30); MONOCYTES % (AUTO) 9.2 % (0.0-11.0); NEUTROPHILS # (AUTO) 10.9 K/uL (1.8-8.9); PLATELET COUNT (AUTO) 427 K/uL (152-348); RED BLOOD CELL COUNT(AUTO) 2.85 MIL/uL (4.06-5.63); RED CELL DISTRIBUTION WIDTH 13.7 % (12.1-16.2); WHITE BLOOD COUNT (AUTO) 14.5 K/uL (3.6-10.2)
[2024-05-20 07:20] LABS: CALCIUM 9.3 mg/dL (8.5-10.1); CREATININE 0.7 mg/dL (0.6-1.3); DIFFERENTIAL COMMENT 1; MAGNESIUM 1.9 mg/dL (1.8-2.4); PHOSPHOROUS 3.9 mg/dL (2.5-4.9); POTASSIUM 3.7 mmol/L (3.5-5.1)
[2024-05-20 07:47] VITALS: BP 115/72; TEMP 98.1; O2SAT 100
[2024-05-20 11:20] VITALS: BP 113/70; TEMP 98.6; O2SAT 99
[2024-05-20 15:33] VITALS: BP 127/82; TEMP 97.9; O2SAT 100
== END 2024-05-20 16:30 | DRG 4 ==
LOC: ER 10:38 → CCU 12:10 → TELE-TD3 05-15 13:37 → TELE3 05-16 10:30
PROC: 06HY33Z Insertion of Infusion Device into Lower Vein, Percutaneous Approach (ICD-10-PCS; principal; 2024-04-16)
PROC: 0BH17EZ Insertion of Endotracheal Airway into Trachea, Via Natural or Artificial Opening (ICD-10-PCS; 2024-04-16)
PROC: 5A1955Z Respiratory Ventilation, Greater than 96 Consecutive Hours (ICD-10-PCS; 2024-04-16)
PROC: 30233M1 Transfusion of Nonautologous Plasma Cryoprecipitate into Peripheral Vein, Percutaneous Approach (ICD-10-PCS; 2024-04-16)
PROC: 05HM33Z Insertion of Infusion Device into Right Internal Jugular Vein, Percutaneous Approach (ICD-10-PCS; 2024-04-17)
PROC: B543ZZA Ultrasonography of Right Jugular Veins, Guidance (ICD-10-PCS; 2024-04-17)
PROC: 5A1D70Z Performance of Urinary Filtration, Intermittent, Less than 6 Hours Per Day (ICD-10-PCS; 2024-04-17)
PROC: 03HY32Z Insertion of Monitoring Device into Upper Artery, Percutaneous Approach (ICD-10-PCS; 2024-04-17)
PROC: 30233K1 Transfusion of Nonautologous Frozen Plasma into Peripheral Vein, Percutaneous Approach (ICD-10-PCS; 2024-04-17)
PROC: 03H Upper Arteries, Insertion (ICD-10-PCS; 2024-04-18)
PROC: 03L Upper Arteries, Occlusion (ICD-10-PCS; 2024-04-18)
PROC: 30233N1 Transfusion of Nonautologous Red Blood Cells into Peripheral Vein, Percutaneous Approach (ICD-10-PCS; 2024-04-18)
PROC: 30243R1 Transfusion of Nonautologous Platelets into Central Vein, Percutaneous Approach (ICD-10-PCS; 2024-04-18)
PROC: 02HV33Z Insertion of Infusion Device into Superior Vena Cava, Percutaneous Approach (ICD-10-PCS; 2024-04-22)
PROC: 0W9B3ZZ Drainage of Left Pleural Cavity, Percutaneous Approach (ICD-10-PCS; 2024-04-23)
PROC: 5A1955Z Respiratory Ventilation, Greater than 96 Consecutive Hours (ICD-10-PCS; 2024-04-27)
PROC: 0BH17EZ Insertion of Endotracheal Airway into Trachea, Via Natural or Artificial Opening (ICD-10-PCS; 2024-04-27)
PROC: 07DR3ZX Extraction of Iliac Bone Marrow, Percutaneous Approach, Diagnostic (ICD-10-PCS; 2024-04-28)
PROC: B24BZZ4 Ultrasonography of Heart with Aorta, Transesophageal (ICD-10-PCS; 2024-05-04)
PROC: 0B113F4 Bypass Trachea to Cutaneous with Tracheostomy Device, Percutaneous Approach (ICD-10-PCS; 2024-05-11)
PROC: 3E0G76Z Introduction of Nutritional Substance into Upper GI, Via Natural or Artificial Opening (ICD-10-PCS; 2024-05-12)
PROC: 0DH63UZ Insertion of Feeding Device into Stomach, Percutaneous Approach (ICD-10-PCS; 2024-05-12)
DX: A41.9 Sepsis, unspecified organism (principal); I63.422 Cerebral infarction due to embolism of left anterior cerebral artery; D65 Disseminated intravascular coagulation [defibrination syndrome]; G62.81 Critical illness polyneuropathy; G72.81 Critical illness myopathy; K72.00 Acute and subacute hepatic failure without coma; K29.71 Gastritis, unspecified, with bleeding; E44.0 Moderate protein-calorie malnutrition; J69.0 Pneumonitis due to inhalation of food and vomit; J15.69 Pneumonia due to other Gram-negative bacteria; J15.0 Pneumonia due to Klebsiella pneumoniae; N17.0 Acute kidney failure with tubular necrosis; R65.21 Severe sepsis with septic shock; G92.8 Other toxic encephalopathy; G93.49 Other encephalopathy; J96.01 Acute respiratory failure with hypoxia; E87.21 Acute metabolic acidosis; E87.20 Acidosis, unspecified; I63.543 Cerebral infarction due to unspecified occlusion or stenosis of bilateral cerebellar arteries; F10.129 Alcohol abuse with intoxication, unspecified; R29.726 NIHSS score 26; K55.9 Vascular disorder of intestine, unspecified; K70.11 Alcoholic hepatitis with ascites; K85.90 Acute pancreatitis without necrosis or infection, unspecified; F19.10 Other psychoactive substance abuse, uncomplicated; Y90.8 Blood alcohol level of 240 mg/100 ml or more; M62.82 Rhabdomyolysis; G81.91 Hemiplegia, unspecified affecting right dominant side; I21.A1 Myocardial infarction type 2; K52.9 Noninfective gastroenteritis and colitis, unspecified; R13.10 Dysphagia, unspecified; J90 Pleural effusion, not elsewhere classified; L89.810 Pressure ulcer of head, unstageable; K82.8 Other specified diseases of gallbladder; M89.8X9 Other specified disorders of bone, unspecified site; R57.1 Hypovolemic shock; D47.2 Monoclonal gammopathy; E87.0 Hyperosmolality and hypernatremia; I31.39 Other pericardial effusion (noninflammatory)
CPT/HCPCS: 32555; 36415; 36569; 36600; 43235; 43761; 70450; 71045; 72125; 74018; 76604; 76705; 82746; 82784; 82803; 83550; 83605; 83690; 83735; 84100; 84155; 84165; 84443; 84478; 84484; 85025; 85610; 85730; 86038; 86140; 86334; 86430; 86704; 86705; 86706; 86803; 86850; 86900; 86901; 86920; 87040; 87086; 87340; 87806; 88185; 90937; 93307; 93312; 93880; 93931-RT; 94002; 94003; 94640; 94664; 94760; 99082-TC; A4606; A4663; A6209; A6213; G0378; G0480; J0330; J0692; J1100; J1200; J1644; J1720; J1940; J2185; J2250; J2270; J2405; J2470; J2765; J3010; J3370; J3430; J3475; J3490; J3590; J7040; J7050; J7070; J7120; J7614; J8597; P9012; P9016; P9035; P9047; P9059; Q0163

== ENCOUNTER 2024-05-20 17:55 | Inpatient (IN) | payer MEDICAID ==
[~2024-05-20] VITALS: Ht 182.9 cm; Wt 49.9 kg
[2024-05-20 16:30] VITALS: TEMP 98
[~2024-05-20 17:55] MED LIST: ACET325T53 NG; ACET650S13 RC; ALBU1.25 NEB; ASPI81TA31 GT; DOCU50LI GT; HEPA50007 SQ; HYDR-4209 PO; IPRA0.2S6 NEB; METO25TA6 PO; Nepro GT; OMEP20TA5 PO; POLY17PO4 PO; QUET25TA36 PO
[2024-05-20] MEDS ORDERED: ACETAMINOPHEN 650 MG/20.3 ML LIQUID UDC GT PRN (18:45)
[2024-05-20] MEDS: ALBUTEROL SULFATE 1.25 MG/3 ML NEBU NEB SCH (19:25)
[2024-05-20] MEDS: IPRATROPIUM BROMIDE 0.5 MG/2.5 ML NEBU NEB SCH (19:25)
[2024-05-20 20:03] VITALS: TEMP 98.6
[2024-05-20 20:07] VITALS: TEMP 98.4
[2024-05-20] MEDS: REMEDY ESSENTIAL ZINC PASTE 113 GM TP SCH (21:00)
[2024-05-20] MEDS: NUTRISOURCE FIBER 4 GM PACKET GT SCH (21:00)
[2024-05-20] MEDS: DOCUSATE SODIUM 100 MG/10 ML LIQUID UDC GT SCH (21:00)
[2024-05-20] MEDS: MIRALAX 17 GM POWD.PACK GT SCH (21:00)
[2024-05-20] MEDS: NEPRO 1000 ML GT PRN (21:58)
[2024-05-21 00:25] VITALS: TEMP 98.3
[2024-05-21 04:13] VITALS: TEMP 98.5
[2024-05-21] MEDS: PANTOPRAZOLE ORAL SUSPENSION 40 MG SUSPDR.PKT GT SCH (05:53)
[2024-05-21 07:41] VITALS: TEMP 97
[2024-05-21] MEDS: ASPIRIN 81 MG TAB.CHEW GT SCH (09:00)
[2024-05-21] MEDS ORDERED: QUETIAPINE FUMARATE 25 MG TABLET GT SCH (17:00)
[2024-05-21] MEDS: ARGININE/GLUTAMINE/CALCIUM BMB 1 EACH POWD.PACK GT SCH (17:32)
[2024-05-21 19:53] VITALS: TEMP 97.9
[2024-05-22 00:08] VITALS: TEMP 98.2
[2024-05-22] MEDS: ACETAMINOPHEN 650 MG/20.3 ML LIQUID UDC GT PRN (01:46)
[2024-05-22 07:49] VITALS: BP 113/69; TEMP 98.6; O2SAT 99
[2024-05-22 19:52] VITALS: TEMP 98
[2024-05-22] MEDS: ARGININE/GLUTAMINE/CALCIUM BMB 1 EACH POWD.PACK GT SCH (20:29)
[2024-05-23 08:03] VITALS: TEMP 98
[2024-05-23] MEDS: NEPRO 1000 ML GT PRN (19:01)
[2024-05-23 19:45] VITALS: TEMP 97.4
[2024-05-23] MEDS: TUBERCULIN,PURIF.PROT.DERIV. 5 TU/0.1 ML TEST ID ONE (21:00)
[2024-05-23] MEDS: QUETIAPINE FUMARATE 25 MG TABLET GT SCH (22:01)
[2024-05-24 08:02] VITALS: TEMP 98.5
[2024-05-24 20:00] VITALS: TEMP 98.4
[2024-05-25 06:01] LABS: ABG BASE EXCESS 6.8 mmol/L (-2.0-3.0); ABG PCO2 43.1 mmHg (35.0-48.0); ABG PH 7.475 (7.350-7.450); ABG PO2 166.4 mmHg (83.0-108.0); ABG SITE RIGHT RADIAL; ABG TOTAL HEMOGLOBIN 10.3 G/dL (13.5-17.5); AaDO2 99.2 mmHg; COHb 0.3 % (0.5-1.5); MetHb 0.3 % (0.0-1.5); O2Hb 98.2 % (94.0-98.0)
[2024-05-25 07:34] LABS: BASOPHILS # (AUTO) 0.1 K/UL (0.0-0.2); EOSINOPHILS # (AUTO) 0.3 K/uL (0.0-0.7); EOSINOPHILS % (AUTO) 2.4 % (0.0-7.0); LYMPHOCYTES # (AUTO) 0.9 K/uL (0.8-4.8); LYMPHOCYTES % (AUTO) 7.4 % (20.5-51.5); MEAN CORPUSCULAR HEMOGLOBIN 31.1 uug (23.8-33.4); MEAN CORPUSCULAR HGB CONC 35 g/dL (32.5-36.3); MEAN CORPUSCULAR VOLUME 89.7 fL (73.0-96.2); MONOCYTES # (AUTO) 1.2 K/uL (0.1-1.30); MONOCYTES % (AUTO) 9.6 % (0.0-11.0); NEUTROPHILS # (AUTO) 9.6 K/uL (1.8-8.9); NEUTROPHILS % (AUTO) 79.6 % (38.5-71.5); PLATELET COUNT (AUTO) 372 K/uL (152-348); RED BLOOD CELL COUNT(AUTO) 3.23 MIL/uL (4.06-5.63); RED CELL DISTRIBUTION WIDTH 14.2 % (12.1-16.2); WHITE BLOOD COUNT (AUTO) 12.1 K/uL (3.6-10.2)
[2024-05-25 07:40] LABS: ALANINE AMINOTRANSFERASE 26 U/L (16-63); ALBUMIN 3.2 g/dL (3.4-5.0); ALKALINE PHOSPHATASE 146 U/L (50-136); ASPARTATE AMINOTRANSFERASE 18 U/L (15-37); BILIRUBIN,TOTAL 0.7 mg/dL (0.2-1.0); CALCIUM 9.9 mg/dL (8.5-10.1); CARBON DIOXIDE 33 mmol/L (21-32); CHLORIDE 95 mmol/L (98-107); CREATININE 0.5 mg/dL (0.6-1.3); GLUCOSE 87 mg/dL (74-106); MAGNESIUM 1.7 mg/dL (1.8-2.4); PHOSPHOROUS 4.2 mg/dL (2.5-4.9); POTASSIUM 3.4 mmol/L (3.5-5.1); SODIUM SERUM 136 mmol/L (136-145); TOTAL PROTEIN, SERUM 7.2 g/dL (6.4-8.2); UREA NITROGEN, BLOOD 32 mg/dL (7-18)
[2024-05-25 07:53] LABS: DIFFERENTIAL COMMENT 1
[2024-05-25 08:06] VITALS: TEMP 99
[2024-05-25] MEDS: MAGNESIUM OXIDE 400 MG TABLET PO ONE (10:01)
[2024-05-25] MEDS: POTASSIUM CHLORIDE 20 MEQ POWDER PACKET GT ONE (10:02)
[2024-05-25 20:49] VITALS: TEMP 98.1
[2024-05-26 12:01] VITALS: TEMP 99.1
[2024-05-26 17:47] VITALS: O2SAT 99
[2024-05-26 19:53] VITALS: TEMP 99.3
[2024-05-27 07:56] VITALS: TEMP 97.7
[2024-05-27] MEDS ORDERED: ESCITALOPRAM OXALATE 10 MG TABLET GT ONE (17:30)
[2024-05-27 20:15] VITALS: TEMP 98.5
[2024-05-28 08:00] VITALS: TEMP 99.2
[2024-05-28] MEDS ORDERED: MAGNESIUM CHLORIDE 64 MG TABLET.SA PO ONE (09:00)
[2024-05-28] MEDS ORDERED: MAGNESIUM CHLORIDE 64 MG TABLET.SA PO SCH (09:00)
[2024-05-28] MEDS: MAGNESIUM OXIDE 400 MG TABLET GT SCH (09:47)
[2024-05-28] MEDS: POTASSIUM CHLORIDE 20 MEQ POWDER PACKET GT ONE (09:47)
[2024-05-28] MEDS: ESCITALOPRAM OXALATE 10 MG TABLET GT SCH (10:56)
[2024-05-28] MEDS: GUAIFENESIN LA 600 MG TABLET.SA PO SCH (11:00)
[2024-05-28 20:16] VITALS: TEMP 98.2
[2024-05-28] MEDS: GUAIFENESIN SUGAR FREE 100 MG/5 ML UDC GT PRN (20:45)
[2024-05-29 07:53] VITALS: TEMP 97.7
[2024-05-29] MEDS: POTASSIUM CHLORIDE 20 MEQ POWDER PACKET GT ONE (08:18)
[2024-05-29] MEDS ORDERED: MAGNESIUM CHLORIDE 64 MG TABLET.SA PO ONE (09:00)
[2024-05-29 20:10] VITALS: TEMP 98.9
[2024-05-30 07:51] VITALS: TEMP 98.1
[2024-05-30] MEDS: NEOMY/BACITRA/POLYMYXIN B OINT UD PACKET TP SCH (08:08)
[2024-05-30] MEDS: POTASSIUM CHLORIDE 20 MEQ POWDER PACKET GT ONE (08:08)
[2024-05-30] MEDS ORDERED: MAGNESIUM CHLORIDE 64 MG TABLET.SA PO ONE (09:00)
[2024-05-30 20:00] VITALS: TEMP 98.6
[2024-05-31 11:23] VITALS: TEMP 98.6
[2024-05-31 22:27] VITALS: TEMP 98.6
[2024-06-01 07:31] VITALS: TEMP 97
[2024-06-01 09:02] LABS: BASOPHILS # (AUTO) 0.1 K/UL (0.0-0.2); EOSINOPHILS # (AUTO) 0.4 K/uL (0.0-0.7); EOSINOPHILS % (AUTO) 3.9 % (0.0-7.0); HEMATOCRIT 28.8 % (36.7-47.1); LYMPHOCYTES # (AUTO) 1.5 K/uL (0.8-4.8); LYMPHOCYTES % (AUTO) 13.7 % (20.5-51.5); MEAN CORPUSCULAR HEMOGLOBIN 31.4 uug (23.8-33.4); MEAN CORPUSCULAR HGB CONC 35 g/dL (32.5-36.3); MEAN CORPUSCULAR VOLUME 90.8 fL (73.0-96.2); MONOCYTES # (AUTO) 0.9 K/uL (0.1-1.30); MONOCYTES % (AUTO) 8.1 % (0.0-11.0); NEUTROPHILS # (AUTO) 7.9 K/uL (1.8-8.9); NEUTROPHILS % (AUTO) 73.3 % (38.5-71.5); PLATELET COUNT (AUTO) 446 K/uL (152-348); RED BLOOD CELL COUNT(AUTO) 3.17 MIL/uL (4.06-5.63); RED CELL DISTRIBUTION WIDTH 14.5 % (12.1-16.2); WHITE BLOOD COUNT (AUTO) 10.7 K/uL (3.6-10.2)
[2024-06-01 09:03] LABS: DIFFERENTIAL COMMENT 1
[2024-06-01 09:14] LABS: CALCIUM 9.6 mg/dL (8.5-10.1); CARBON DIOXIDE 29 mmol/L (21-32); CHLORIDE 98 mmol/L (98-107); CREATININE 0.5 mg/dL (0.6-1.3); GLUCOSE 117 mg/dL (74-106); MAGNESIUM 1.9 mg/dL (1.8-2.4); PHOSPHOROUS 4.3 mg/dL (2.5-4.9); POTASSIUM 3.5 mmol/L (3.5-5.1); SODIUM SERUM 138 mmol/L (136-145); UREA NITROGEN, BLOOD 26 mg/dL (7-18)
[2024-06-01] MEDS: ASPIRIN 81 MG TAB.CHEW GT SCH (09:27)
[2024-06-01 20:42] VITALS: TEMP 99.2
[2024-06-02 07:32] VITALS: TEMP 97.5
[2024-06-02 20:52] VITALS: TEMP 99
[2024-06-03 07:43] VITALS: TEMP 98
[2024-06-03] MEDS: MEDIHONEY= THERAHONEY 1.5 OZ TUBE TOP SCH (09:37)
[2024-06-03] MEDS: POTASSIUM CHLORIDE 20 MEQ POWDER PACKET GT ONE (18:05)
[2024-06-03 20:14] VITALS: TEMP 98
[2024-06-04 07:47] VITALS: TEMP 98
[2024-06-04 22:28] VITALS: TEMP 99.1
[2024-06-05 07:47] VITALS: TEMP 97.7
[2024-06-05 19:48] VITALS: TEMP 97.5
[2024-06-06 08:10] VITALS: TEMP 98.5
[2024-06-06 20:04] VITALS: TEMP 98.7
[2024-06-07 08:29] VITALS: TEMP 98.4
[2024-06-07 20:00] VITALS: TEMP 99.1
[2024-06-08 07:46] VITALS: TEMP 97.9
[2024-06-09 07:35] VITALS: TEMP 97.7
[2024-06-09 19:46] VITALS: TEMP 98.8
[2024-06-09] MEDS: GUAIFENESIN SUGAR FREE 100 MG/5 ML UDC GT PRN (20:15)
[2024-06-09 22:00] VITALS: TEMP 98.8
[2024-06-10 07:43] VITALS: TEMP 98.5
[2024-06-10 20:45] VITALS: TEMP 99.1
[2024-06-11 19:57] VITALS: TEMP 99.1
[2024-06-12 07:47] VITALS: TEMP 98.1
[2024-06-12 20:17] VITALS: TEMP 98.5
[2024-06-13 07:47] VITALS: TEMP 98.6
[2024-06-13 20:11] VITALS: TEMP 97.9
[2024-06-14 07:45] VITALS: TEMP 98.1
[2024-06-14 20:43] VITALS: TEMP 98.8
[2024-06-15 07:34] VITALS: TEMP 97.9
[2024-06-15 21:44] VITALS: TEMP 98.4
[2024-06-16 07:24] VITALS: TEMP 98
[2024-06-16] MEDS: ASPIRIN 81 MG TAB.CHEW GT SCH (08:26)
[2024-06-16 22:39] VITALS: TEMP 98.4
[2024-06-17 07:34] VITALS: TEMP 97.9
[2024-06-17 19:56] VITALS: TEMP 98.3
[2024-06-18 07:59] VITALS: TEMP 97.9
[2024-06-18] MEDS: NEOMY/BACITRA/POLYMYXIN B OINT UD PACKET TP SCH (09:33)
[2024-06-18 19:36] VITALS: TEMP 98.6
[2024-06-19 07:36] VITALS: TEMP 97.6
[2024-06-19 19:50] VITALS: TEMP 98.4
[2024-06-20 07:36] VITALS: BP 108/70; TEMP 97.4; O2SAT 100
[2024-06-20 19:44] VITALS: TEMP 98
[2024-06-21 07:46] VITALS: TEMP 99.6
[2024-06-21 13:26] VITALS: TEMP 99
[2024-06-21 16:33] VITALS: TEMP 98.7
[2024-06-21 19:39] VITALS: TEMP 98.7
[2024-06-21] MEDS ORDERED: GLUTAMINE GT (21:31)
[2024-06-21] MEDS ORDERED: PANT40TA49 GT (21:31)
[2024-06-21] MEDS ORDERED: ESCI5TAB GT (21:31)
[2024-06-21] MEDS ORDERED: NUT.237L67 PO (21:31)
[2024-06-21] MEDS ORDERED: [UNRECOGNIZED DRUG - OTHER] GT (21:31)
[2024-06-21] MEDS ORDERED: ARGININE GT (21:31)
[2024-06-21] MEDS ORDERED: NEOM1OIN19 TP (21:31)
[2024-06-21] MEDS ORDERED: GUAI100S69 GT (21:31)
== END 2024-06-21 23:27 | disposition short-term general hospital (02) | DRG 130 ==
LOC: SA 17:55 → UNDOLOA 06-21 23:27
PROC: 5A1955Z Respiratory Ventilation, Greater than 96 Consecutive Hours (ICD-10-PCS; principal; 2024-05-20)
DX: J96.21 Acute and chronic respiratory failure with hypoxia (principal); G92.8 Other toxic encephalopathy; E72.20 Disorder of urea cycle metabolism, unspecified; L89.156 Pressure-induced deep tissue damage of sacral region; L89.896 Pressure-induced deep tissue damage of other site; I69.351 Hemiplegia and hemiparesis following cerebral infarction affecting right dominant side; Z93.0 Tracheostomy status; Z43.0 Encounter for attention to tracheostomy; I69.398 Other sequelae of cerebral infarction; F33.9 Major depressive disorder, recurrent, unspecified; F41.1 Generalized anxiety disorder; F10.10 Alcohol abuse, uncomplicated; F13.10 Sedative, hypnotic or anxiolytic abuse, uncomplicated; D64.9 Anemia, unspecified; K76.9 Liver disease, unspecified; K82.9 Disease of gallbladder, unspecified; R13.10 Dysphagia, unspecified; I69.391 Dysphagia following cerebral infarction; K52.9 Noninfective gastroenteritis and colitis, unspecified; F41.0 Panic disorder [episodic paroxysmal anxiety]; R91.8 Other nonspecific abnormal finding of lung field; F19.10 Other psychoactive substance abuse, uncomplicated; H54.62 Unqualified visual loss, left eye, normal vision right eye; Z93.1 Gastrostomy status; Z87.01 Personal history of pneumonia (recurrent); Z87.448 Personal history of other diseases of urinary system
CPT/HCPCS: 36415; 36600; 71045; 82803; 83735; 84100; 85025; 86580; 94002; 94003; 94640; 94760; 99082-TC; A6209; A6213; J3590